=== PATIENT | female | born 1950 | race Caucasian/White ===

== ENCOUNTER → 2023-07-14 13:44 | Outpatient (REF) | payer MEDICARE, OTHER, SELFPAY | LOC: WDC 13:44 | PROVIDERS: ATTENDING PHYSICIAN Internal Medicine | DX: Z12.31 Encounter for screening mammogram for malignant neoplasm of breast (principal) | CPT/HCPCS: 77063; 77067 ==

== ENCOUNTER → 2023-07-19 09:04 | Outpatient (REF) | payer MEDICARE, OTHER, SELFPAY | LOC: RCS 09:04 | PROVIDERS: ATTENDING PHYSICIAN Nurse Practitioner Family | DX: R51.9 Headache, unspecified (principal); R20.0 Anesthesia of skin; R20.2 Paresthesia of skin; R01.1 Cardiac murmur, unspecified; I10 Essential (primary) hypertension; E78.2 Mixed hyperlipidemia; E11.69 Type 2 diabetes mellitus with other specified complication | CPT/HCPCS: 93306 ==

== ENCOUNTER 2023-07-20 17:22 | Inpatient (IN) | payer MEDICARE, OTHER, SELFPAY ==
[2023-07-20] VITALS (9 sets, daily range): BP systolic 130–176; BP diastolic 75–134
--- NOTE | 2023-07-20 13:51 | ED.GENMED ---
History of Present Illness
General
Chief Complaint: Abnormal Lab Value
Time Seen by Provider: 07/20/23 13:51
Travel History
Have you had any contact with someone who has COVID-19?: No
Do you have any symptoms of coronavirus? Fever > 100 degrees, chills, cough, shortness of breath, sore throat, loss of taste or smell, muscle aches, or headache?: No
History of Present Illness
History of Present Illness:
HPI: The patient comes in today by primary care's office after carotid ultrasound today was abnormal. Imaging was obtained today by primary care doctor because she has been having a few months of right-sided paresthesias however no other neurologic
deficits. notes no neurologic abnormality including no language deficits.
EXAM:
GENERAL: Well appearing in no distress
HEENT: Moist oral mucosa
CARDIOVASCULAR: No murmurs, normal heart rate, regular rhythm, No chest wall tenderness
PULMONARY: No respiratory distress, breath sounds are clear and equal
ABDOMEN: Soft with no peritoneal signs, no tenderness
NEUROLOGIC: Excellent strength all extremities, no coordination deficits, GCS 15, NIH stroke scale equals 0, no sensory deficits
PSYCHIATRIC: Appropriate mental status, normal insight and judgement
EXTREMITIES: Nontender, no edema, moves all extremities equally
SKIN: No rash, no lesions
TIME OF INITIAL ENCOUNTER: 1:55 PM
NUMBER AND COMPLEXITY OF PROBLEMS ADDRESSED AT THE ENCOUNTER
� Chronic conditions affecting care: High blood pressure, hyperlipidemia
� Acute Exacerbation and/or Progression of Chronic Illness: This is an acute problem
� Differential Diagnosis includes: Carotid stenosis, CVA
AMOUNT AND/OR COMPLEXITY OF DATA TO BE REVIEWED AND ANALYZED
� I performed an independent evaluation of and my interpretation is:
EKG:
CT: I personally viewed the CT imaging of the brain that she had earlier today and saw no acute abnormality.
X-rays:
Laboratory Studies: CBC unremarkable, chemistries unremarkable
Other:
� Review of other/old records: I reviewed the ultrasound report of the carotids that was done earlier today that showed 70% stenosis and likely near occlusion at the right carotid bulb, there is also left carotid bulb plaque
measuring greater than 70% stenosis
� Clinical information was obtained by an independent historian: I spoke to at bedside
� Prescriptions/Medications Considered but not given:
� Further testing considered but not performed:
RISK OF COMPLICATIONS AND/OR MORBIDITY OR MORTALITY OF PATIENT MANAGEMENT
� Social determinants of health affecting care: Lives at home
� Discussion with other providers: I personally reviewed case with Dr. Nielsen at 2 PM and suggested admission to the hospital with neurology evaluation as well. I spoke to Dr. Knapp at 3:38 PM who recommends patient stay in the
hospital regardless of CTA. Hospitalist for admission at 3:38 PM
� Escalation of care including admission/observation vs risk of discharge considered: Given patient's findings on ultrasound along with paresthesias over the last several weeks, neurology recommends patient stay in the hospital.
A CTA is pending.
Phy Exam
Physical Exam
Physical Exam:
See HPI
Course
Orders/Labs/Results
Orders:
Orders
07/20/23 14:10
CT Head & Neck Angio W/wo IV Urgent
Reason For Exam: b/l carotid stenosis by US; R paresthesias
Basic Metabolic Panel Urgent
Complete Blood Count/With Diff Urgent
07/20/23 15:51
Aspirin 325 mg PO NOW STA
Clopidogrel Bisulfate [Plavix] 600 mg PO NOW STA
NIH Stroke Scale As Directed
NIH Stroke Scale As Directed
Directions: Per protocol
Comment: Please until order to stop
Neurological Checks As Directed
Frequency: Per unit guidelines
07/20/23 15:52
Lorazepam [Ativan] 2 mg IV NOW PRN
07/20/23 17:09
Admit/Transfer Patient As Directed
Co-Sign Provider:
Level of Care: Inpatient admission
Assign to:: Telemetry
Physician / Group: Hospitalist
Diagnosis: Carotid atenosis
Reason for Telemetry: CVA/TIA
Date to Stop Telemetry: 07/23/23
Time to Stop Telemetry: 11:00
Reason for Hospitalization: Carotid stenosis
Expected length of stay greater than two midnights?: Yes
ELOS- Estimated Length of Stay in days: 3
I certify the patient meets the requirements for IP care: Yes
07/20/23 17:11
Code Status As Directed
Resuscitation Status: Full Code
07/20/23 18:00
Atorvastatin [Lipitor] 10 mg PO QPM
07/20/23 19:59
Acetaminophen [Tylenol/Feverall] 650 mg RECTAL Q4HPRN PRN
Acetaminophen [Tylenol] 1,000 mg PO DAILYPRN PRN
Acetaminophen [Tylenol] 650 mg PO Q4HPRN PRN
Lisinopril [Zestril] 10 mg PO DAILY
07/20/23 19:59
Case Management Consult ONCE
Case Management Consult: Discharge Planning
Comment: stroke/tia
DIETARY CONSULT Routine
Reason for Consult: stroke/TIA
Floorperson Urgent
Activity As Directed
Activity Level: Ambulate
NIH Stroke Scale As Directed
Directions: Per protocol
Comment: every shift and with any change in condition or mental status
Neurological Checks As Directed
Frequency: q4h
Additional Instructions:: q4h x 24h upon admission to the floor, then qshift & with any change in condition
and mental status
Patient Education As Directed
Type: Stroke education packet
Comment: provide to patient and family
Pneumatic Compression Sleeves As Directed
Type: Knee high
Swallow Screening CVA/TIA ONLY As Directed
Comment: NPO until swallowing screening completed
If patient FAILS swallow screening:: NPO, Speech Therapy consult, Aspiration Precautions
If patient PASSES swallow screening, diet:: Cholesterol Lowering
Above diet order entered?: Yes- passed screening
Vital Signs As Directed
Frequency: Per unit guidelines
Ot Eval And Treat Routine
Pt Eval And Treat Routine
Treatment: eval gait
Activity Level: Ambulate
Speech Therapy Eval & Treat Routine
DX Deep Vein Thrombosis Video Routine
07/21/23 06:29
Cardiovascular Evaluation IN AM
Glycohemoglobin (HgbA1c) IN AM
07/21/23 08:00
Aspirin Chewable [Low Strength Aspirin] 81 mg PO DAILY
Aspirin Low Dose EC [Aspir Low (Enteric Coated)] 81 mg PO DAILY
Clopidogrel Bisulfate [Plavix] 75 mg PO DAILY
Clopidogrel Bisulfate [Plavix] 75 mg PO DAILY
07/21/23 15:52
MR Brain Without Contrast Routine
Reason For Exam: any left MCA strokes? suspec symptomatic L carotid
Recent pill cam endoscopy?: No
07/23/23 11:00
DC Protocol for Telemetry ONCE
Abnormal Lab Results
07/20/23
14:10
RBC 4.11 L 10^6/uL
(4.20-5.40)
MCH 32.1 H pg
(27.0-31.0)
MPV 13.7 H fL
(7.4-10.4)
Neutrophils % 35.9 L %
(42.2-75.2)
Lymphocytes % 53.8 H %
(20.5-51.1)
Glucose 103 H mg/dl
(70-99)
07/20/23 14:10
07/20/23 14:10
Vital Signs
Initial and Last Documented VS:
Initial Vital Signs
Temp Pulse Resp BP Pulse Ox
98.2 F 65 18 168/134 99
07/20/23 13:35 07/20/23 13:35 07/20/23 13:35 07/20/23 13:35 07/20/23 13:35
Last Documented Vital Signs
Temp Pulse Resp BP Pulse Ox
98.0 F 69 17 132/59 97
07/21/23 23:00 07/21/23 23:00 07/21/23 23:00 07/21/23 23:00 07/21/23 23:00
*Critical Care Note
Total Time (30-74mins, 75-104mins- exclusive of procedures): Not Applicable
ED Attending Note
-
Portions of this chart may have been created with voice recognition software.� Occasional wrong word or��sound alike� substitutions may have occurred due to the inherent limitations of voice recognition software.
Discharge Plan
Departure
Patient Disposition: Admit
Date of Disposition: 07/20/23
Time of Disposition: 15:45
Presentation/result/management discussed w/ accepting MD/DO: Hospitalist
Patient with high blood pressure during this ER visit?: Yes
Discharge Problem:
Carotid stenosis, bilateral
Interventions
Interventions:
*Risk Screen - Suicide Last Done: 07/20/23 13:35
*General Assessment Last Done: 07/20/23 13:35
*Neglect/Abuse Screening Last Done: 07/20/23 13:35
*ED COVID-19 Vaccine History Last Done: 07/20/23 13:35
*Nursing Disposition Last Done: 07/20/23 20:02
Discharge Date and Time
Discharge Date/Time: 07/20/23 20:03
--- NOTE | 2023-07-20 14:25 | CON.NEURO4 ---
Consultation - Neurology 4
-
CONSULTING PHYSICIAN: Eboni Knapp
REFERRING PHYSICIAN: ER
DICTATED BY: Eboni Knapp
DATE/TIME OF REQUEST: 07/20/23
DATE/TIME OF CONSULTATION: 07/20/23
Reason for Consultation: Right sided paresthesias
History of Present Illness:
Patient is a 73-year-old woman with a past ministry of hypertension, [id number] diabetes mellitus who was referred to the ER after finding of significant findings on outpatient carotid ultrasound. Patient had relayed findings of some
intermittent right face/lip hand and right leg paresthesia over the past couple of weeks which led to diagnostic tests of CT head noncontrast as well as carotid ultrasound. Carotid ultrasound done late this morning demonstrated near occlusion on
the right internal carotid artery along with high-grade greater than 70% stenosis on the left internal carotid artery.
Patient reports that around 4 to 6 weeks ago she began to have intermittent right face/lip, right hand and right leg paresthesias. They were painless and lasted a very brief time perhaps less than a minute and then spontaneously resolved. She
thinks she may have had a very minor episode today but not entirely sure, otherwise the last episode seems to been around 7 to 10 days ago. The episodes seem to occur intermittently sometimes happening 2 or 3 days out of the week and then going
several days without happening.
She did not have any left eye blindness or vision change, slurred speech or speech difficulty or weakness of the right hand face or leg during the episodes.
Does not take any antiplatelet at baseline no history of TIA or stroke before. No recent head or neck trauma or radiation treatments to the neck.
Past Medical History: Hypertension, hyperlipidemia, type 2 diabetes mellitus not on insulin
Surgical History: Appendectomy, Bartholin cyst excision
Family History: Mother with lung cancer, father had colon cancer and hypertension, no history of early stroke or CAD
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
Allergies: No known drug allergies
Review of Symptoms:
Patient denies any fever, headache, chest pain, shortness of breath, GI or symptoms.
Physical Exam:
Middle aged woman no overt distress, head normocephalic no trauma, no neck masses, oropharynx clear, heart rate regular, systolic murmur heard, breathing unlabored lungs clear to auscultation bilaterally, abdomen soft non tender no lower extremity
edema
Neurologic Examination:
The patient is awake, alert and oriented x 3. Shee is able to follow commands and answer questions appropriately. There is no aphasia or dysarthria. On cranial nerve assessment, pupils are 3 mm bilateral, round and reactive to light and
accommodation. Visual clark are full. Extraocular movements are intact. Facial sensations are intact and bilaterally symmetrical, there is no facial asymmetry. Hearing is intact bilaterally to normal conversation volume. Tongue palate and uvula
are midline. Sternocleidomastoid strengths are full bilaterally. Motor strengths are 5/5 bilateral upper and lower extremities on medical research Russell scale. There is no drift or involuntary movement noted. Deep tendon reflexes are 2+ bilateral
upper and lower extremities and Babinski is absent bilaterally. Intact to light touch, vibration in upper and lower extremities in symmetric fashion. There was no extinction noted on double simultaneous stimulation. Coordination is intact by finger
to nose bilaterally.
Neuro Imaging:
CT head non contrast no acute abnormality, no infarct, hemorrhage, masses or edema
CTA head and neck pending
Carotid ultrasound
IMPRESSION:
1. Calcified plaque within the right carotid bulb, measurements suggestive of high-grade greater than 70% stenosis, and likely near occlusion as per modified Society of Radiologists in Ultrasound consensus criteria (IAC carotid criteria white paper,
2020). Peak systolic velocity 615 cm/s, and internal to common carotid ratio 9.69.
2. Calcified left carotid bulb plaque, measurements suggestive of greater than 70% stenosis, although degree of stenosis is less but not seen within the right carotid bulb. Peak systolic velocity 298 cm/s, internal to common carotid ratio 5.41.
Impressions
1. High degree of suspicion for symptomatic left carotid stenosis causing sensory TIA or minor stroke with face/arm/leg paresthesia. History and exam not supporting these symptoms as coming from cervical spine with no weakness, muscle atrophy,
or hyperreflexia indicative of myelopathy, and very rare for cervical spine issues to give such symptoms.
2. Carotid ultrasound supporting > 70% stenosis on left ICA and probable occlusion of right ICA
3.
4.
Recommendations:
1. Follow up CTA of the head and neck
2. Give clopidogrel 600 mg and aspirin 325 once now. Start DAPT clopidogrel 75 mg and Aspirin 81 mg tomorrow
3. Goal normotension
4. Check lipid panel and HbA1c
5. Continue Atorvastatin 10 mg daily
6. Neurologic checks and NIH scales
7. Would check MRI brain without contrast, Lorazepam beforehand with some claustrophobia
8. Vascular surgery note reviewed appreciated input
9. Monitor on cardiac telemetry, has a recent TTE so don't feel this needs repeating
Will follow
Discussed patient care with: Patient and her , ED
[2023-07-20 14:36] LABS: % Basophils 0.8 % (0-2); % Eosinophils 2.4 % (0-6); % Immature Granulocytes 0.5 % (0-0.5); % Lymphocytes 53.8 % (20.5-51.1); % Monocytes 6.6 % (1.7-9.3); % Neutrophils 35.9 % (42.2-75.2); Absolute Basophils 0.1 10^3/uL (0-0.2); Absolute Eosinophils 0.2 10^3/uL (0-0.7); Absolute Lymphocytes 3.4 10^3/uL (1.2-3.4); Absolute Monocytes 0.4 10^3/uL (0.1-0.6); Absolute Neutrophils 2.3 10^3/uL (1.4-6.5); Hematocrit 38.5 % (37.0-47.0); Hemoglobin 13.2 g/dL (12.0-16.0); Mean Corp Hgb Conc. 34.3 g/dL (33.0-37.0); Mean Corpuscular Hgb 32.1 pg (27.0-31.0); Mean Corpuscular Volume 93.7 fL (81.0-99.0); Mean Platelet Volume 13.7 fL (7.4-10.4); Nucleated Red Blood Cells % 0 %; Platelet Count 167 10^3/uL (130-400); Red Blood Cell Count 4.11 10^6/uL (4.20-5.40); Red Cell Dist. Width 13.2 % (11.5-14.5); White Blood Cell Count 6.3 10^3/uL (4.8-10.8)
--- NOTE | 2023-07-20 14:41 | W.PN.UPDATE ---
Update Note
Progress Note Update
Seen and examined with INTERNET SALES MANAGER. Full consultation to follow. Briefly 73-year-old female I was asked to see in the emergency room due to carotid stenosis. Patient and her note that she had had elevated blood pressure reading at their living
facility [facility]. This prompted evaluation her primary care office. The hypertension as well as her relaying to her primary care provider symptoms on and off for about 2 months of right sided facial/perioral numbness as well as right upper and
lower extremity numbness. These paresthesias occurred intermittently maybe every couple weeks. Most recently she thinks she had 1 today. The each last about 5 minutes. No amaurosis. No weakness. No portrait photographer difficulty. No speech dysarthria.
Carotid duplex done as an outpatient demonstrated significant stenoses and therefore she was referred to the emergency room.
Cardiovascular risk factors include hypertension, hyperlipidemia, tobacco use (smoked from ages 18 to 32 to 3 packs a day). Denies any history of CVAs/MS/coronary disease.
On exam/she is awake and alert. Head is normocephalic and atraumatic. Eyes are anicteric. Neck is soft without jugular venous distention. Breathing is unlabored. 2+ upper extremity radial pulses palpable bilaterally. Abdomen is soft,
nondistended, nontender. Lower extremity with 2+ femoral and pedal pulses palpable bilaterally. Feet are warm and pink and well-perfused, no rubor, no ulcerations. No gross focal neurologic deficits.
Carotid duplex reviewed. Severe right carotid stenosis with peak systolic velocity in the 600 cm/s range. Appears near occlusive. On the left side velocity profile also consistent with greater than 70% stenosis.
Plan/ Severe bilateral carotid stenoses. She may be symptomatic (paresthesias intermittently right side of the body). This would suggest left carotid symptomatic stenosis possibly. However, I think based on all this would favor neurologic
evaluation. In addition I have recommended CT angiogram of the head and neck to confirm/better ascertain the degree of stenosis. Following neurology evaluation we can decide whether she is symptomatic or asymptomatic. If symptomatic, and CAT scan
confirms high degree of stenosis, then would favor revascularization on this admission (would plan admission, medical optimization/cardiology evaluation, and possible OR Monday). If asymptomatic, and CT scan demonstrates chronic plaque, then could
workup further as outpatient. If asymptomatic and CT scan demonstrates near occlusive or string-like stenoses, then would consider revascularization on this admission as above. Will await neurology evaluation and CT scan imaging. Discussed all
this with the patient and her . Discussed with the ER physician as well.`
--- NOTE | 2023-07-20 14:43 | CON.VAS ---
Consultation
Consultation Request
Date/Time Consultation Performed: 07/20/23 1845
Requesting Provider: Andres Morton MD
Performing Provider: Radha Vuong NP-C for Tomas Nielsen MD
Reason for Consultation: Bilateral carotid stenosis
Medical History
-
Chief Complaint: Right sided paresthesia intermittent
History of Present Illness:
This is a right-handed 73-year-old female with significant past medical history of hypertension, hyperlipidemia, and diabetes who presents to the ED from the urgency of the RECORDS OFFICER at her PCP office for outpatient ultrasound resulting with bilateral
severe carotid stenosis and accompanying right-sided paresthesia over the past 2 months. Patient and her note that she had an elevated blood pressure reading at their living facility [facility], her high blood pressure results and recent
intermittent episodes of paresthesia prompted her to see her PCP. She notes over the past roughly 2 months she has been experiencing roughly 1/week episodes of paresthesia located in her right lip, right hand digits, and anterior area of right
lower extremity. Each episode lasts less than 5 minutes and then she has a complete return to baseline neurological status. Most recently she thinks she had one today. She denies amaurosis, unilateral weakness, generalized weakness, dysarthria,
and aphasia. Carotid duplex done as an outpatient demonstrated significant stenoses and therefore she was referred to the emergency room.
Cardiovascular risk factors include hypertension, hyperlipidemia, tobacco use (smoked from ages 18 to 32 to 3 packs a day). She denies personal history of MS, stroke, recent trauma, or requirement of vascular surgical intervention. She denies
history of similar symptomatology in the past.
Past Medical History
Past Medical History: HTN, NIDDM (Recent hemoglobin A1c 6.4 currently managed with diet) and Other (Hyperlipidemia)
Past Surgical History: Appendectomy
Social History
Tobacco: Former Smoker (Approximately 3 packs/day for 20 years)
Alcohol: Occasional
Drug: None
Personal:
Living: With Family
Family History
Family History: Other (Denies familial history of stroke)
Allergies / Home Medications
Allergy/AdvReac Type Severity Reaction Status Date / Time
No Known Allergies Allergy Unverified 07/20/23 13:37
�Medication �Instructions �Recorded �Confirmed �Type
Vitamin Powder 1 tbsp PO DAILY 07/20/23 07/20/23 History
acetaminophen 500 mg tablet 1,000 mg PO DAILYPRN PRN mild pain 07/20/23 07/20/23 History
(Tylenol Extra Strength)
ascorbic acid 1,000 1 ea PO DAILY 07/20/23 07/20/23 History
ob-usywefxfgoyr-agrnickr powder
effervescent pack (Emergen-C)
atorvastatin 10 mg tablet 10 mg PO QPM 07/20/23 07/20/23 History
lisinopril 10 mg tablet 10 mg PO DAILY 07/20/23 07/20/23 History
naproxen sodium 220 mg tablet 440 mg PO HSPRN PRN mild pain 07/20/23 07/20/23 History
(Aleve)
Review of Systems
-
History Source: Patient
Constitutional: Reports No Symptoms
EENT: Reports Other (Mild headaches)
Respiratory: Reports No Symptoms
Cardiac: Reports No Symptoms
Vascular: Denies Leg Pain / Claudication, Numbness or Tingling
Abdomen/GI: Reports No Symptoms
: Reports No Symptoms
Musculoskeletal: Reports No Symptoms
Skin: Reports No Symptoms
Neurological: Reports Numbness (Intermittent nonsustained paresthesia of right lip, right hand digits, and area of right lower extremity)
Endocrine: Reports No Symptoms
Physical Exam
Vital Signs
Temp Pulse Resp BP Pulse Ox
98.2 F 65 20 131/89 99
07/20/23 13:35 07/20/23 13:35 07/20/23 14:17 07/20/23 14:17 07/20/23 13:35
Lab Results
07/20/23 14:10
Physical Exam
General: No Apparent Distress and Comfortable
HEENT: Normocephalic, Anicteric and Atraumatic
Respiratory: Non Labored Respirations
Cardiac: Regular Rhythm; Negative JVD
GI: Soft, Non Tender and Non Distended
Musculoskeletal: No Edema
Skin: Warm and Dry
Neuro: AO x 3, No Motor Deficits and Nonfocal/Grossly Intact
Psych: Calm
Pulses: Bilateral Femoral: +2, Bilateral Dorsalis Pedis: +2 and Bilateral Posterior Tibial: +2
Assessment / Plan
-
Assessment: 73-year-old female with bilateral carotid stenosis per ultrasound with accompanying intermittent right-sided paresthesia. She may be symptomatic (paresthesias intermittently right side of the body)
Plan:
Neurology consultation, would appreciate their input on if this is asymptomatic carotid stenosis
CT angiogram of the head and neck to confirm/better ascertain the degree of stenosis
If symptomatic, and CAT scan confirms high degree of stenosis, then would favor revascularization on this admission (would plan admission, medical optimization/cardiology evaluation, and possible OR Monday). If asymptomatic, and CT scan
demonstrates chronic plaque, then could workup further as outpatient. If asymptomatic and CT scan demonstrates near occlusive or string-like stenoses, then would consider revascularization on this admission as above.
Surgical plan pending CT scan imaging and neurology evaluation
I performed this shared service with the attending. I evaluated the patient [id number] and have entered clinical documentation as shown in the encounter note. I performed the following component(s): history and physical exam. Note that medical
decision making is not final until attested by vascular attending
[2023-07-20 14:49] LABS: Blood Urea Nitrogen 15 mg/dl (7-17); Calcium 9.8 mg/dl (8.4-10.2); Carbon Dioxide 30 mmol/L (22-30); Chloride 105 mmol/L (98-107); Glucose 103 mg/dl (70-99); Sodium 139 mmol/L (135-145); eGFR > 60.00
[2023-07-20] MEDS: ASPIRIN 325 MG PO (16:41)
[2023-07-20] MEDS: PLAVIX 600 MG PO (16:42)
--- NOTE | 2023-07-20 16:53 | HPS.HSE ---
Family Physician
-
Family Physician: Genet Merida
Chief Complaint
-
Abmormal US
History of Present Illness
73-year-old woman with a past history of
hypertension,
hzj-brlixnv-gkfqkolqa diabetes mellitus
Comes in to ER after an outpatient carotid ultrasound showed near occlusion on the right internal carotid artery along with high-grade greater than 70% stenosis on the left internal carotid artery. She reports intermittent right face/lip hand and
right leg paresthesia over the past few weeks. When questioned further, she adds that 4 to 6 weeks ago she began to have intermittent right face/lip, right hand and right leg paresthesias: painless, lasting less than a minute and then spontaneously
resolving. She denies left eye blindness, vision change, slurred speech or speech difficulty or weakness of the right hand face or leg during the episodes. She does not take any antiplatelet meds and has no history of TIA or stroke, mo recent head
or neck trauma or radiation treatments to the neck. At the time of my interview she had no symptoms and felt well.
Medical History
Past Medical History
Past Medical History: Reports Other
Additional Past Medical History:
Essential Hypertension,
hyperlipidemia,
type 2 diabetes mellitus not on insulin
Appendectomy,
Bartholin cyst excision
Diffuse cystic mastopathy of both breasts
Past Surgical History: Reports Other
Additional Past Surgical History:
See above
Social History
Tobacco: Non-smoker
Alcohol: Daily
Drug: None
Personal:
Living: With Family
Family History
Family History: Not pertinent
Allergies / Home Medications
Allergies reflects when Allergies were last updated in [facility].
Home Medications with original date entered in [facility]
Allergy/Medication List:
Allergies
Allergy/AdvReac Type Severity Reaction Status Date / Time
No Known Allergies Allergy Unverified 07/20/23 13:37
Home Medications
Vitamin Powder 1 tbsp PO DAILY Supplement 07/20/23
acetaminophen 500 mg tablet (Tylenol Extra Strength) 1,000 mg PO DAILYPRN PRN mild pain 07/20/23
ascorbic acid 1,000 ks-jwvftqtclkpx-hrxvacxp powder effervescent pack (Emergen-C) 1 ea PO DAILY Supplement 07/20/23
atorvastatin 10 mg tablet 10 mg PO QPM High Cholesterol 07/20/23
lisinopril 10 mg tablet 10 mg PO DAILY High Cholesterol 07/20/23
naproxen sodium 220 mg tablet (Aleve) 440 mg PO HSPRN PRN mild pain 07/20/23
Review of Systems
-
History Source: Patient
A 12 point ROS was completed and negative except as noted: Yes
Physical Exam
Vital Signs
Vital Signs
Temp Pulse Resp BP Pulse Ox
98.2 F 71 15 140/121 95
07/20/23 13:35 07/20/23 16:30 07/20/23 16:15 07/20/23 16:21 07/20/23 16:30
Physical Exam
General: Well Developed, Well Nourished, No Apparent Distress, Comfortable and Conversant
HEENT: NormoCephalic, Moist mucous membranes, Atraumatic, No Ptosis, Nose Appears Normal and Ears Appear Normal
Respiratory: Clear
Cardiac: S1/S2 and Regular Rhythm
GI: Soft, Non Tender and Non Distended
Musculoskeletal: No Clubbing, No Cyanosis and No Edema
Skin: Warm and Dry; No Rash or Jaundice
Neuro: Awake, Alert, Oriented, AO x 3 and Nonfocal/grossly intact
Psych: Calm
Laboratory Results
-
07/20/23 14:10
07/20/23 14:10
Data Reviewed
-
Lab Data: Labs Reviewed by me
Impression/Plan
-
IMPRESSION:
73 woman with carotid stenosis. Patient has been seen by vascular surgery and neurology.
PLAN:
1. Carotid stenosis. Please see notes from vascular surgery and neuro. In summary:
VS:
Neurology consultation
CT angiogram of the head and neck to confirm/better ascertain the degree of stenosis
If symptomatic, and CAT scan confirms high degree of stenosis, then would favor revascularization on this admission
plan admission: medical optimization
cardiology evaluation
possible OR Monday
If asymptomatic, and CT scan demonstrates chronic plaque, then could workup further as outpatient.
If asymptomatic and CT scan demonstrates near occlusive or string-like stenoses, then would consider revascularization on this admission as above.
Surgical plan pending CT scan imaging and neurology evaluation
Neuro:
Follow up CTA of the head and neck
clopidogrel 600 mg and aspirin 325 once now.
Start DAPT clopidogrel 75 mg and Aspirin 81 mg tomorrow
Goal normotension
Check lipid panel and HbA1c
Continue Atorvastatin 10 mg daily
Neurologic checks and NIH scales
check MRI brain without contrast, Lorazepam beforehand with some claustrophobia
Monitor on cardiac telemetry,
No need to repeat TTE
2. Essential HTN - chronic.
Lisinopril 10
Re-melani in am and add other agents if needed
VCD for DVTp
Full code
--- NOTE | 2023-07-20 17:20 | W.PN.UPDATE ---
Update Note
Progress Note Update
CT angiogram of the head and neck reviewed. (Images reviewed by me). Severe bilateral bifurcation/proximal internal carotid artery stenosis with heavy concentric calcified plaque and mixed plaque more centrally. Appears to result in severe
stenoses bilaterally. Reviewed neurology note. Agree with Dr. Knapp that this likely represents symptomatic critical left carotid stenosis, asymptomatic high-grade right carotid stenosis. Discussed these findings with the patient and her
. Discussed my recommendations for carotid revascularization. Discussed with her alternatives of revascularization including carotid endarterectomy and carotid stenting. Recommend left carotid endarterectomy. Procedure discussed at
length. Discussed risks including but not limited to bleeding, infection, cardiac complications/LA, cranial nerve injury, stroke (in symptomatic setting approximately 2%). She understands all and wishes to proceed with LEFT carotid endarterectomy.
Therefore, we will plan left carotid endarterectomy Monday,07/24/2023. In the meanwhile would recommend cardiology consultation tomorrow. Patient has already completed outpatient echocardiogram yesterday. Will defer to cardiology if further
preoperative imaging is required, however she is symptomatic to the carotid artery and therefore would proceed regardless on Monday unless felt by cardiology that she would strongly benefit from further preoperative cardiac testing. However, she
certainly would benefit from restratification, and likely establishing longer-term follow-up with cardiology team.
In addition, I agree with Dr. Knapp for MRI evaluation of the brain.
Note I did discuss my recommendation likely for staged right carotid revascularization. She has severe stenosis by ultrasound and CT scan on the right side. However, she is asymptomatic to that side currently.
[2023-07-20] MEDS: LIPITOR 10 MG PO (20:55)
[2023-07-20] MEDS: ZESTRIL PO (21:09)
[2023-07-21] VITALS (7 sets, daily range): BP systolic 132–212; BP diastolic 59–96
--- NOTE | 2023-07-21 00:14 | PTCARENOTE ---
Pt admitted from ED, arrived to 3W at 1999. Pt AAOx3, no c/o pain. Pt ambulating without issues. Pt afebrile, VSS. L AC IV C/D/I. Lungs clear, pt on room air. No N/V or stools. Pt continent of bowel and bladder. Diet order placed upon
arrival, pt with good PO intake. Skin intact. Pt placed on telemetry box #1. [facility] order QShift and Neuro checks continue q4 hours. Awaiting further plan. Call soto within reach and bed in lowest position.
[2023-07-21] MEDS: APRESOLINE 5 MG IV ×2 (04:20→21:53)
[2023-07-21 07:22] LABS: HDL Cholesterol 51 mg/dl; LDL Cholesterol, Calculated 88 mg/dl; Total Cholesterol 175 mg/dl (50-199); Triglyceride 184 mg/dl (10-149); Very Low Density Lipoprotein 36 mg/dl (0-30)
[2023-07-21] MEDS: ZESTRIL 10 MG PO (07:45)
[2023-07-21] MEDS: LOW STRENGTH ASPIRIN 81 MG PO (07:46)
[2023-07-21] MEDS: ASPIR LOW (ENTERIC COATED) 81 MG PO (07:46)
[2023-07-21] MEDS: PLAVIX 75 MG PO (07:46)
--- NOTE | 2023-07-21 08:47 | PTOTSP ---
The patient is independent with ambulation and elevations, demonstrating no signs of weakness or instability. The patient is planned for left CEA on Monday - please reconsult postop if there are concerns regarding her mobility. PT will sign off at
this time given there are no therapy needs.
[2023-07-21 08:53] LABS: Glycohemoglobin (HgbA1c) 6.4 % (4.0-5.6)
--- NOTE | 2023-07-21 10:20 | CON.CAR ---
Addendum entered and electronically signed by Beto Reid MD 07/21/23 11:45:
I saw and examined the patient.
The NURSING EXECUTIVE's note was reviewed and I agree with the note.
Comment: 73 yo female with HTN, diet controlled DM, and HLD, who presented to the ER for abnormal outpatient carotid u/s. Carotid u/s showed near occlusion of the right internal carotid artery and high-grade > 70% stenosis of the left internal
carotid artery. She is very active and easily able to do greater than 4 METS without any cardiovascular symptoms. I discussed with her that she needs no further testing or medication prior to surgery.
-Low to intermediate risk candidate for surgery, however, given no cardiovascular symptoms needs no further testing or medication prior to surgery.
-We will sign off; please call back with questions or concerns.
Original Note:
Consultation
Consultation Request
Date/Time Consultation Requested: 07/21/23 9a
Date/Time Consultation Performed: 07/21/23 10a
Requesting Provider: JESSICA Dee
Performing Provider: JESSICA Mauro for Dr. Reid
Reason for Consultation: pre-op risk assessment
Medical History
-
Chief Complaint: right face/hand parathesias, carotid artery stenosis
History of Present Illness:
Mrs. Jasso is a 73 yo female with HTN, diet controlled DM, and HLD, who presented to the ER for abnormal outpatient carotid u/s. Carotid u/s showed near occlusion of the right internal carotid artery and high-grade > 70% stenosis of the left
internal carotid artery. She admits to having right face/lip, hand an d leg parathesias for several weeks. She is admitted with neurology and vascular surgery following. We are consulted for pre-op risk assessment prior to planned left CEA for
07/24/[address] Nielsen. She denies any cardiac symptoms. Echo 07/19/23 showed EF 60%, mild cLVH, and mild-mod MR.
Past Medical History
Past Medical History: Other (as above)
Past Surgical History: Appendectomy
Social History
Tobacco: Former Smoker
Alcohol: Occasional
Personal:
Living: With Family
Employment: Retired
Family History
Family History: Reviewed & Not Pertinent
Allergies / Home Medications
Allergy/AdvReac Type Severity Reaction Status Date / Time
No Known Allergies Allergy Unverified 07/20/23 13:37
�Medication �Instructions �Recorded �Confirmed �Type
Vitamin Powder 1 tbsp PO DAILY Supplement 07/20/23 07/20/23 History
acetaminophen 500 mg tablet 1,000 mg PO DAILYPRN PRN mild pain 07/20/23 07/20/23 History
(Tylenol Extra Strength)
ascorbic acid 1,000 1 ea PO DAILY Supplement 07/20/23 07/20/23 History
kx-hwhjbcrylhzl-qivuqldh powder
effervescent pack (Emergen-C)
atorvastatin 10 mg tablet 10 mg PO QPM High Cholesterol 07/20/23 07/20/23 History
lisinopril 10 mg tablet 10 mg PO DAILY High Cholesterol 07/20/23 07/20/23 History
naproxen sodium 220 mg tablet 440 mg PO HSPRN PRN mild pain 07/20/23 07/20/23 History
(Aleve)
Review of Systems
-
History Source: Patient
All other systems: Negative unless noted
Physical Exam
Vital Signs
Temp Pulse Resp BP Pulse Ox
97.8 F 57 16 157/71 99
07/21/23 07:07 07/21/23 07:45 07/21/23 07:07 07/21/23 07:45 07/21/23 07:07
Lab Results
07/20/23 14:10
07/20/23 14:10
Physical Exam
General: Well Developed, Well Nourished and No Apparent Distress
HEENT: Normocephalic, Anicteric and Moist Mucous Membranes
Respiratory: Clear
Cardiac: S1/S2 and Regular Rhythm
Breast: Deferred by me
GI: Soft, Non Tender, Non Distended and Normal Bowel Sounds
Rectal: Deferred by Provider
Musculoskeletal: No Clubbing, No Cyanosis and No Edema
Skin: Warm and Dry
Neuro: AO x 3
Psych: Calm
Impression / Plan
-
Pre-op risk assessment - prior to left CEA 07/24/[address] Nielsen.
- denies any cardiac symptoms.
- she is able to perform > 4 METS without any cardiac symptoms.
- echo 07/19/23 with normal LVEF, no RWMA, mild cLVH and mild-mod MR.
- no further cardiac testing recommended prior to L CEA.
- EKG ordered.
Carotid stenosis - severe b/l.
- symptomatic critical left carotid stenosis, asymptomatic high-grade right carotid stenosis.
- vascular surgery following and plans for left CEA on 07/24/23.
- ASA, Lipitor, Plavix
- neurology following also.
HTN - well controlled on Lisinopril, continue.
HLD - continue Lipitor.
- LDL 88.
DM - diet controlled.
- hgba1c 6.4%.
Data Reviewed
-
CT Scan: Report Reviewed by me (head: WNL) and Other (CTA: High-grade stenosis of the bilateral carotid bulbs secondary to severe atherosclerosis. Greater than 90% luminal diameter reduction to near occlusion of the right carotid bulb. Greater than
85% luminal diameter reduction of the left carotid bulb.)
Ultrasound: Report Reviewed by me (carotid u/s: occlusion of the right internal carotid artery and high-grade > 70% stenosis of the left internal carotid artery)
Labs: Labs Reviewed by me
Old Records: Reviewed
--- NOTE | 2023-07-21 11:23 | W.PN.NEURO.1 ---
Today's Communication / Plan
-
-Goal normotension
-NIH and neurologic checks
-Continue DAPT therapy, aspirin/plavix, plan for 21 days of plavix and then stop
-Increase Atorvastatin a small amount fo 20 mg daily, LDL goal less than 70 with TIA and carotid stenosis
-Planning for CEA on Monday
Neuro Assessment/Plan
Assessment
Symptomatic left carotid stenosis producing several episodes of TIA with sensory symptoms of right face/lip, arm and leg, several episodes first starting around 4 weeks ago.
High grade stenosis around 80-90% of the left carotid artery.
Asymptomatic high grade stenosis and near occlusion of right carotid artery.
Risk factors of previous smoking, hypertension, prediabetes
Subjective/Objective
Subjective Data
Date of Service: July 21, 2023
No acute events, no recurrence of right sided paresthesia, no headache, discussed medications, surgery, stroke prevention
Objective Data
Vital Signs
Temp Pulse Resp BP Pulse Ox
97.9 F 64 16 167/83 96
07/21/23 10:59 07/21/23 10:59 07/21/23 10:59 07/21/23 10:59 07/21/23 10:59
Lab Results
07/20/23 14:10
07/20/23 14:10
Sodium 139 mmol/L (135-145) 07/20/23 14:10
Potassium mmol/L (3.5-5.1) 07/20/23 14:10
BUN 15 mg/dl (7-17) 07/20/23 14:10
Glucose 103 mg/dl (70-99) H 07/20/23 14:10
Calcium 9.8 mg/dl (8.4-10.2) 07/20/23 14:10
LDL Cholesterol, Calc 88 mg/dl 07/21/23 06:29
Patient Allergies
No Known Allergies Allergy (Unverified 07/20/23 13:37)
LDL Level: >70, statin ordered
Review of Systems
-
History Source: Patient
All other systems: Reviewed and negative
Constitutional: No Symptoms
EENT: No Symptoms Reported
Respiratory: No Symptoms
Cardiac: No Symptoms
Abdomen/GI: No Symptoms
Genitourinary: No Symptoms
Musculoskeletal: No Symptoms
Skin: No Symptoms
Neuro: Numbness
Endocrine: No Symptoms
Hematologic / Lymphatic: No Symptoms
Allergy / Immunology: No Symptoms
Physical Exam
-
General: No Apparent Distress
Eyes: No Ptosis
HEENT: Normocephalic
Neck: No Bruits Bilaterally
Respiratory: Clear to Auscultation
Cardiac: Regular Rhythm
GI: Normal Bowel Sounds
Skin: Unremarkable
Extremities: No Clubbing
Psych: Unremarkable
Extended Neurological Exam
Mood & Affect: Mood Unremarkable and Affect Unremarkable
Attention Span & Concentration: Awake, Alert and Interactive
Memory: Unremarkable
Tremor: Hand Tremor Absent
Involuntary Movement: None
Speech: Quality Unremarkable and Quantity Unremarkable; Negative Expressive Aphasia, Receptive Aphasia or Dysarthric
Cranial Nerve II: Left Eye: Pupillary Reactivity Unremarkable and Pupillary Size Unremarkable
Cranial Nerve II: Right Eye: Pupillary Reactivity Unremarkable and Pupillary Size Unremarkable
Cranial Nerves III, IV, : Extraocular Movement: Extraocular Movement Full in all Directions
Cranial Nerve VII: Facial Symmetry: Normal Facial Symmetry
Cranial Nerve XII: Tongue Protusion: Midline
Muscle Strength, Overall: Full Throughout
Muscle Bulk & Tone: Bulk Unremarkable and Tone Unremarkable
Pronator Drift: No Drift in Upper Extremities
Deep Tendon Reflexes: Trace Throughout
Touch Sensation: Unremarkable
Coordination: Kcaoru-lrwz-ztvfeo Testing Unremarkable
Data Reviewed
-
CT-A: Report Reviewed and Image Reviewed
CT Head: Report Reviewed and Image Reviewed
MRI Head: Ordered and Pending
Echocardiogram: Report Reviewed
[2023-07-21] MEDS: ATIVAN 2 MG IV (11:31)
[2023-07-21] MEDS: NSS (PRESERVATIVE FREE) 1 ML IV (11:33)
--- NOTE | 2023-07-21 13:24 | W.PN.HOSP.TC ---
Today's Communication/Plan
-
for left CEA Monday
Assessment / Plan
Assessment / Plan
pt is a 73 year old female
Symptomatic left Carotid stenosis--apprec neuro--MRI reveals no acute intracranial pathology--US/CTA with high grade stenosis >90% of right carotid bulb, >85% left carotid bulb--for left CEA on Monday--for now cont asa/plavix x 21 days--cont
lipitor--PT/OT
Essential HTN - chronic-- cont Lisinopril
VCD for DVTp
Code status --Full code
Anticipated Discharge: > 48 hours
Subjective/Interval History
-
Date of Service: July 21, 2023
pt returned from MRI
Objective Data
-
Vital Signs:
max temp for 24 hours
07/20/23
19:30
Temp 98.5 F
Vital Signs
Temp Pulse Resp BP Pulse Ox
97.9 F 64 16 167/83 96
07/21/23 10:59 07/21/23 10:59 07/21/23 10:59 07/21/23 10:59 07/21/23 10:59
Review of Systems
-
All other systems: Reviewed and negative
Physical Exam
-
General: Well Developed, Well Nourished and No Apparent Distress
HEENT: Normocephalic, Atraumatic and Other (bilateral carotid bruits); Negative Oxygen
Respiratory: Clear to Auscultation, Wheezes and Rales
Cardiac: Regular Rhythm and S1/S2; Negative Murmur
GI: Soft, Nontender, Nondistended and Normal Bowel Sounds
Musculoskeletal: No Clubbing, No Cyanosis and No Edema
Skin: Warm
Neuro: Awake
[2023-07-21] MEDS: LIPITOR 20 MG PO (17:03)
[2023-07-21] MEDS: FLUSH (NSS) 1 FLUSH IV (21:54)
[2023-07-22] VITALS (7 sets, daily range): BP systolic 124–169; BP diastolic 63–93
--- NOTE | 2023-07-22 08:14 | W.PN.NEURO.1 ---
Today's Communication / Plan
-
-Continue DAPT, plavix will be for 21 days total then aspirin alone
-20 mg Atorvastatin increased for goal LDL less than 70
-Goal normotension
-Cardiac telemetry
-Discussed CEA planned for Monday
Will follow up Monday, call with questions and concerns
Neuro Assessment/Plan
Assessment
Symptomatic left carotid stenosis producing several episodes of TIA with sensory symptoms of right face/lip, arm and leg, several episodes first starting around 4 weeks ago.
High grade stenosis around 80-90% of the left carotid artery.
Asymptomatic high grade stenosis and near occlusion of right carotid artery.
MRI brain negative for acute infarct, mild/moderate ischemic small vessel disease on white matter
Empty sella seen on brain MRI is asymptomatic
Risk factors of previous smoking, hypertension, prediabetes
Subjective/Objective
Subjective Data
Date of Service: July 22, 2023
No acute events, discussed the MRI brain, no recurrences of sensory TIA, discussed surgery
Objective Data
Vital Signs
Temp Pulse Resp BP Pulse Ox
98.8 F 62 16 168/78 96
07/22/23 07:50 07/22/23 07:50 07/22/23 07:50 07/22/23 07:50 07/22/23 07:50
Lab Results
07/20/23 14:10
07/20/23 14:10
Sodium 139 mmol/L (135-145) 07/20/23 14:10
Potassium mmol/L (3.5-5.1) 07/20/23 14:10
BUN 15 mg/dl (7-17) 07/20/23 14:10
Glucose 103 mg/dl (70-99) H 07/20/23 14:10
Calcium 9.8 mg/dl (8.4-10.2) 07/20/23 14:10
LDL Cholesterol, Calc 88 mg/dl 07/21/23 06:29
Patient Allergies
No Known Allergies Allergy (Unverified 07/20/23 13:37)
LDL Level: >70, statin ordered
Review of Systems
-
History Source: Patient
All other systems: Reviewed and negative
Constitutional: No Symptoms
EENT: No Symptoms Reported
Respiratory: No Symptoms
Cardiac: No Symptoms
Abdomen/GI: No Symptoms
Genitourinary: No Symptoms
Musculoskeletal: No Symptoms
Skin: No Symptoms
Neuro: Numbness; Negative Headache or Speech Problem
Endocrine: No Symptoms
Hematologic / Lymphatic: No Symptoms
Allergy / Immunology: No Symptoms
Physical Exam
-
General: Comfortable
Eyes: No Ptosis
HEENT: Normocephalic
Neck: No Bruits Bilaterally
Respiratory: Clear to Auscultation
Cardiac: Regular Rhythm
GI: Normal Bowel Sounds
Skin: Unremarkable
Extremities: No Clubbing
Psych: Unremarkable
Extended Neurological Exam
Mood & Affect: Mood Unremarkable and Affect Unremarkable
Attention Span & Concentration: Awake, Alert and Interactive
Memory: Unremarkable
Tremor: Hand Tremor Absent
Involuntary Movement: None
Speech: Quality Unremarkable and Quantity Unremarkable; Negative Expressive Aphasia or Dysarthric
Cranial Nerve II: Left Eye: Pupillary Reactivity Unremarkable, Pupillary Size Unremarkable and Visual Vo Grossly Intact
Cranial Nerve II: Right Eye: Pupillary Reactivity Unremarkable, Pupillary Size Unremarkable and Visual Vo Grossly Intact
Cranial Nerves III, IV, : Extraocular Movement: Extraocular Movement Full in all Directions
Muscle Strength, Overall: Full Throughout
Pronator Drift: No Drift in Upper Extremities
Data Reviewed
-
CT-A: Report Reviewed and Image Reviewed
MRI Head: Report Reviewed and Image Reviewed
Carotid Ultrasound: Report Reviewed
Echocardiogram: Report Reviewed
Labs: Report Reviewed
[2023-07-22] MEDS: PLAVIX 75 MG PO (08:16)
[2023-07-22] MEDS: ASPIR LOW (ENTERIC COATED) 81 MG PO (08:16)
[2023-07-22] MEDS: ZESTRIL 10 MG PO (08:16)
--- NOTE | 2023-07-22 11:27 | W.PN.HOSP.TC ---
Today's Communication/Plan
-
cont asa/plavix
CEA Monday
Assessment / Plan
Assessment / Plan
pt is a 73 year old female
Symptomatic left Carotid stenosis--apprec neuro--MRI reveals no acute intracranial pathology--US/CTA with high grade stenosis >90% of right carotid bulb, >85% left carotid bulb--for left CEA on Monday-- cont asa/plavix x 21 days--cont lipitor--PT/OT
Essential HTN - chronic-- cont Lisinopril
VCD for DVTp
Code status --Full code
Anticipated Discharge: > 48 hours
Subjective/Interval History
-
Date of Service: July 22, 2023
pt waiting for CEA
Objective Data
-
Vital Signs:
max temp for 24 hours
07/21/23
23:00
Temp 98.0 F
Vital Signs
Temp Pulse Resp BP Pulse Ox
97.7 F 59 17 162/63 96
07/22/23 11:10 07/22/23 11:10 07/22/23 11:10 07/22/23 11:10 07/22/23 11:10
I&O
07/21/23 07/22/23 07/23/23
06:59 06:59 06:59
Intake Total 620 / 620
Balance 620 / 620
Review of Systems
-
All other systems: Reviewed and negative
Physical Exam
-
General: Well Developed, Well Nourished and No Apparent Distress
HEENT: Normocephalic and Atraumatic
Respiratory: Clear to Auscultation; Negative Wheezes or Rhonchi
Cardiac: Regular Rhythm and S1/S2; Negative Murmur
GI: Soft, Nontender, Nondistended and Normal Bowel Sounds
Musculoskeletal: No Clubbing, No Cyanosis and No Edema
Neuro: Awake
--- NOTE | 2023-07-22 12:15 | PTOTSP ---
DC OT at this time she has no functional deficits. Please reconsult if needed after Monday procedure.
[2023-07-22] MEDS: LIPITOR 20 MG PO (18:13)
[2023-07-23] VITALS (7 sets, daily range): BP systolic 158–198; BP diastolic 63–84
[2023-07-23] MEDS: ZESTRIL 10 MG PO (08:08)
[2023-07-23] MEDS: ASPIR LOW (ENTERIC COATED) 81 MG PO (08:08)
[2023-07-23] MEDS: PLAVIX 75 MG PO (08:08)
[2023-07-23 09:49] LABS: Hematocrit 40.7 % (37.0-47.0); Hemoglobin 13.9 g/dL (12.0-16.0); Mean Corp Hgb Conc. 34.2 g/dL (33.0-37.0); Mean Corpuscular Hgb 32.2 pg (27.0-31.0); Mean Corpuscular Volume 94.2 fL (81.0-99.0); Platelet Count 181 10^3/uL (130-400); Red Blood Cell Count 4.32 10^6/uL (4.20-5.40); Red Cell Dist. Width 13.2 % (11.5-14.5)
[2023-07-23 10:02] LABS: Blood Urea Nitrogen 18 mg/dl (7-17); Calcium 9.8 mg/dl (8.4-10.2); Carbon Dioxide 23 mmol/L (22-30); Chloride 105 mmol/L (98-107); Estimated Creatinine Clearance 79 ml/min; Glucose 170 mg/dl (70-99); Potassium 4.6 mmol/L (3.5-5.1); Sodium 137 mmol/L (135-145); eGFR > 60.00
--- NOTE | 2023-07-23 10:05 | W.PN.HOSP.TC ---
Today's Communication/Plan
-
NPO post MN
CEA in AM
remains on asa/plavix
Assessment / Plan
Assessment / Plan
pt is a 73 year old female
Symptomatic left Carotid stenosis--apprec neuro--MRI reveals no acute intracranial pathology--US/CTA with high grade stenosis >90% of right carotid bulb, >85% left carotid bulb--for left CEA on Monday-- cont asa/plavix x 21 days--cont lipitor--PT/OT
Essential HTN - chronic-- cont Lisinopril
VCD for DVTp
Code status --Full code
Anticipated Discharge: > 48 hours
Subjective/Interval History
-
Date of Service: July 23, 2023
pt waiting for surgery for CEA
Objective Data
-
Labs:
Laboratory Results
07/23/23
09:05
WBC 6.0
Hgb 13.9
Hct 40.7
Plt Count 181
Sodium 137
Potassium 4.6
Chloride 105
Carbon Dioxide 23
BUN 18 H
Creatinine 0.6
Glucose 170 H
Calcium 9.8
Vital Signs:
max temp for 24 hours
07/22/23
19:05
Temp 98.5 F
Vital Signs
Temp Pulse Resp BP Pulse Ox
98.6 F 56 17 162/74 97
07/23/23 07:44 07/23/23 07:44 07/23/23 07:44 07/23/23 07:44 07/23/23 07:44
I&O
07/22/23 07/23/23 07/24/23
06:59 06:59 06:59
Intake Total 620 / 620 1400 / 1400
Balance 620 / 620 1400 / 1400
Review of Systems
-
All other systems: Reviewed and negative
Physical Exam
-
General: Well Developed, Well Nourished and No Apparent Distress
HEENT: Normocephalic and Atraumatic
Respiratory: Clear to Auscultation; Negative Wheezes or Rhonchi
Cardiac: Regular Rhythm and S1/S2; Negative Murmur
GI: Soft, Nontender, Nondistended and Normal Bowel Sounds
Musculoskeletal: No Clubbing, No Cyanosis and No Edema
Skin: Warm
Neuro: Awake
[2023-07-23] MEDS: APRESOLINE 5 MG IV (11:29)
--- NOTE | 2023-07-23 12:49 | CM ---
Met with patient and at bedside; initial assessment completed
Pharmacy verified: [facility]
Patient scheduled for CEA procedure tomorrow morning
Patient reported that she and her live in a one floor home; 2 steps to enter; bathroom has walk-in shower with grab bar
PLOF: patient reported that she is independent with ADLs and ambulation; Drives
DME: none
SNF/Rehab/Home Health utilization history: none
Transportation: will provide ride home
Plan: discharge to home when medically stable; will monitor for discharge needs
[2023-07-23] MEDS: LIPITOR 20 MG PO (17:02)
[2023-07-24] VITALS (17 sets, daily range): BP systolic 115–192; BP diastolic 53–96
[2023-07-24] MEDS: APRESOLINE 5 MG IV ×2 (05:09→22:47)
--- NOTE | 2023-07-24 05:32 | PTCARENOTE ---
Surgical clip & prep with CHG cloths completed. Linens and gown changed. Emotional support/preop instruction provided. Plan of care ongoing.
[2023-07-24] MEDS: PERIDEX 0.12% ORAL RINSE 15 ML PO (05:40)
[2023-07-24] MEDS: BACTROBAN 2% OINTMENT 1 APPLIC NASAL (05:40)
--- NOTE | 2023-07-24 06:23 | PTCARENOTE ---
Verbal report to Cyndi in [employer]. Transported via stretcher w/conference services director antibiotic and chart.
[2023-07-24 07:01] LABS: Hematocrit 43.8 % (37.0-47.0); Hemoglobin 15.2 g/dL (12.0-16.0); Mean Corp Hgb Conc. 34.7 g/dL (33.0-37.0); Mean Corpuscular Hgb 32.3 pg (27.0-31.0); Mean Corpuscular Volume 93.2 fL (81.0-99.0); Mean Platelet Volume 13.7 fL (7.4-10.4); Platelet Count 187 10^3/uL (130-400); Red Cell Dist. Width 13.2 % (11.5-14.5); White Blood Cell Count 5.8 10^3/uL (4.8-10.8)
--- NOTE | 2023-07-24 07:30 | W.SUR.PREOP ---
Pre-Operative Surgical Note
-
I have examined this patient prior to the performance of the scheduled procedure.
The patient's condition is unchanged from the time of the current History and
Physical and the patient is able to undergo the scheduled procedure.
[2023-07-24 07:34] LABS: Blood Urea Nitrogen 18 mg/dl (7-17); Carbon Dioxide 24 mmol/L (22-30); Chloride 107 mmol/L (98-107); Estimated Creatinine Clearance 79 ml/min; Glucose 120 mg/dl (70-99); Potassium 4.6 mmol/L (3.5-5.1); Sodium 139 mmol/L (135-145); eGFR > 60.00
--- NOTE | 2023-07-24 10:47 | W.SUR.POST ---
Surgical Immediate Post Op
Note
Pre Op Diagnosis: carotid stenosis
Post Op Diagnosis: same
Procedure Performed: Left carotid endarterectomy with bovine pericardial patch angioplasty, EEG monitoring, an shunt
Primary Surgeon: Morales
Assist: Jeniffer LOPEZ
Anesthesia: general
Estimated Blood Loss: 200cc
Fluids: see anesthesia flow sheet
Drains/Shunts: shunt- removed
Specimens/Cultures: carotid plaque
Doppler/Duplex/Angio (Y/N): Y
Complications: none
Operative Findings: woke from anesthesia moving all extremities
[2023-07-24] MEDS: DILAUDID 0.25 MG IV (11:40)
[2023-07-24] MEDS: NSS 1000 IV ×2 (11:44→22:57)
--- NOTE | 2023-07-24 11:47 | OR.RPT ---
Operative Report
Operative Report
PROCEDURE DATE: 07/24/2023
Preoperative diagnosis: Symptomatic critical left carotid artery stenosis.
Postoperative diagnosis: Same
Procedure: Left carotid endarterectomy with bovine pericardial patch angioplasty and intraoperative EEG/SSEP monitoring. (Temporary intraoperative carotid shunt placement).
Surgeon: Morales
Cinder Man: OKSANA Swift
Complications: None
Anesthesia: General
Indications for procedure:
Critical left carotid stenosis with recent symptomatology (right upper and lower extremity sensory loss) felt by neurology to be related to left carotid stenosis. Risk/benefits/alternatives of revascularization were all extensively discussed.
Patient had severe right carotid stenosis, asymptomatic as well. She understood all wish to proceed.
Description of procedure:
Patient was identified brought to the operating room placed on the table in supine position. After the adequate administration of anesthesia and perioperative antibiotics she was prepped and draped in the standard surgical fashion. A standard
preoperative timeout was undertaken and everybody was in agreement the plan. A standard longitudinal incision was made in the left neck that was carried through the skin subcutaneous tissue. Using the electrocautery dissection was carried through
the platysma muscle layer and then alongside the anterior medial border of the sternocleidomastoid muscle. Then using a combination of sharp dissection with the Metzenbaum scissors and electrocautery I dissected along the anterior medial border of
the internal jugular vein. The common facial vein branch was ligated between silk ties and then divided (note it was a relatively inferior/low common facial vein branch). I then deepened my retraction. The common carotid artery was identified and
carefully dissected away from the surrounding structures take great care to avoid any injury to the structures. A vessel loop was passed around it which was double looped, but not yet tightened. Note the vagus nerve was not definitively seen in
her field, but care was taken to dissect only on the surface of the carotid artery to avoid any inadvertent injury. I then continued my dissection up the common carotid artery to the bulb staying only on the anterior surface of the carotid artery.
Then I carried the dissection up to the internal carotid artery and then to the distal internal carotid artery. I identified where it was soft and carefully circumferentially dissected the internal carotid artery with minimal mobilization and
passed a vessel loop around it. Note the hypoglossal nerve was preserved from harm's way. The patient was given an appropriate dose of heparin 7 units. Next I dissected the anterior surface of the external carotid artery and superior thyroid
branches. These were then carefully circumferentially dissected with minimal mobilization and vessel loops passed around these which were double looped but not yet tightened. After 3 minutes of heparin circulation time and confirmation of
optimization of the blood pressure with my anesthesiology colleagues, I clamped the distal internal carotid artery where it was soft. There was no immediate EEG or SSEP changes. After 1 minute of test clamp time there was no changes noted.
Therefore at this point, the vessel loops on the external carotid artery and superior thyroid branches were tightened and the common carotid artery was clamped where it was soft proximally. EEG/SSEP waveforms remained stable. An arteriotomy was
made on the common carotid artery with an 11 blade and extended using a Mathews scissor. Was extended the arteriotomy onto the mid to distal internal carotid artery. There was bulky mixed plaque in the proximal internal carotid artery causing a
severe stenosis as noted on CT scan. No eleonora piecemeal hemorrhagic plaque, but the central portion was soft. A Covert was then used to endarterectomized the plaque. An endarterectomy plane was created, and the plaque was then endarterectomized.
Distally I feathered the plaque out to a nice clean endpoint in the distal internal carotid artery. I had to extend my arteriotomy and clamp slightly more distally on the internal carotid artery to get to a nice clean endpoint. The posterior
thickened intima/plaque did extend up slightly and therefore I had to extend. Next I endarterectomized the intima back to normal intima in the common carotid artery, and the intima was cut flush there. I then grasped the plaque and everted plaque
out of the origin of the external carotid artery. The plaque was then sent off for specimen. The proximal endpoint in the common carotid artery had some loose intima/thickened intima on the medial aspect and therefore I had to dissect more
proximally on the common carotid artery and then shift my clamp and then extended my arteriotomy proximally. Then I was able to grasp the thickened intima portion that was loose as well and then cut this flush so that it was nicely adherent
proximally in the common carotid artery. The origin of the external carotid artery was carefully visualized and any fine debris were removed with fine forceps. Proximal and distal endpoints were then carefully inspected. Any fine debris was
removed with fine forceps, and the intima was noted to be nicely adherent proximally distally. Next any fine debris were removed throughout the endarterectomy bed with fine forceps. Interrupted 7-0 Prolene tacking sutures were placed on the
proximal and distal endpoints just to be certain. I then flushed heparinized saline. I was very satisfied. Then, I used a bovine pericardial patch to sew a patch angioplasty with a running 6-0 Prolene suture. While suturing my patch, we had a
episode of hypotension. During this time SSEP findings in the right upper and right lower extremity were noted to be slowed. I had prepared a shunt, but first we tried getting the blood pressure up. Still did not improved and therefore I quickly
placed the shunt into the internal carotid artery (Turon shunt), allowed to backbleed and then placed it into the common carotid artery. Shunt clamps were placed proximally and distally. At this point the pressure improved and with the shunt
there was immediate resolution to baseline of the SSEPs. EEG tracings never changed. I now continued my suture line of the patch with a shunt in place. Prior to completing and tying down my suture line, I remove my shunt and then reclamped the
internal and common carotid artery. I sequentially backbled the arterial branches and then reclamped each 1 prior to unclamping the next 1. I then irrigated heparinized saline. I then quickly completed and tied down my suture line. No during
this period of time, pressures were maintained and there was no diminishment in EEG/SSEP findings. We then restored flow in the common carotid and external carotid arteries. Finally, we released flow in the internal carotid artery. There was
excellent pulsatile flow in all 3 vessels. There was an excellent Doppler signal in the internal carotid artery distal to the patch with a good normal low resistance Doppler signal. There was a good Doppler signal in the external carotid artery as
well. 6-0 Prolene [id number]-[id number] sutures were placed along any bleeding points along the suture line. Protamine was given to reverse the heparin. Hemostasis was meticulously achieved, and then confirmed. I then closed in layers with 2-0 Vicryl
layer to reapproximate the sternocleidomastoid muscle, followed by 3-0 Vicryl platysma muscle running layer, followed by 4 Monocryl subcuticular stitch. Dermabond was applied. The patient tolerated procedure well. She awoke moving all extremities
to command with tongue in the midline.
[2023-07-24 11:57] LABS: Hematocrit 34.4 % (37.0-47.0); Mean Corp Hgb Conc. 34.9 g/dL (33.0-37.0); Mean Corpuscular Hgb 33.1 pg (27.0-31.0); Mean Corpuscular Volume 94.8 fL (81.0-99.0); Mean Platelet Volume 13.9 fL (7.4-10.4); Platelet Count 142 10^3/uL (130-400); Red Blood Cell Count 3.63 10^6/uL (4.20-5.40); Red Cell Dist. Width 13.5 % (11.5-14.5); White Blood Cell Count 11.7 10^3/uL (4.8-10.8)
[2023-07-24 12:04] LABS: Blood Urea Nitrogen 15 mg/dl (7-17); Calcium 8.2 mg/dl (8.4-10.2); Carbon Dioxide 21 mmol/L (22-30); Chloride 111 mmol/L (98-107); Estimated Creatinine Clearance 79 ml/min; Glucose 145 mg/dl (70-99); Potassium 4.1 mmol/L (3.5-5.1); Sodium 137 mmol/L (135-145); eGFR > 60.00
--- NOTE | 2023-07-24 12:27 | TRANSFER ---
Transferred to ICU, VSS, neurochecks WNL, WORKERS COMPENSATION ADMINISTRATOR Joan made aware of Narcan admin. Terrence nolasco RN BSN.
[2023-07-24] MEDS: ZESTRIL PO (13:18)
[2023-07-24] MEDS: TYLENOL 650 MG PO (13:52)
[2023-07-24] MEDS: ASPIR LOW (ENTERIC COATED) 81 MG PO (13:52)
[2023-07-24] MEDS: PLAVIX 75 MG PO (13:52)
--- NOTE | 2023-07-24 14:02 | W.PN.NEURO.1 ---
Today's Communication / Plan
-
-Seen post operatively, no new neuro deficits
-Neuro checks and NIH scales
-SBP control would aim for SBP maximum less than 180
-Aspirin and Plavix, Plavix 21 days total (End date of Plavix 08/09)
-Try small increase Atorvastatin to 20 mg daily, monitor for any new muscle aches
-Pain control post op
-Eventually will have asymptomatic high grade right carotid stenosis assessed for revascularization
Neuro Assessment/Plan
Assessment
Symptomatic left carotid stenosis producing several episodes of TIA with sensory symptoms of right face/lip, arm and leg, several episodes first starting around 4 weeks ago.
High grade stenosis around 80-90% of the left carotid artery.
Asymptomatic high grade stenosis and near occlusion of right carotid artery.
MRI brain negative for acute infarct, mild/moderate ischemic small vessel disease on white matter
Empty sella seen on brain MRI is asymptomatic
Risk factors of previous smoking, hypertension, prediabetes
Subjective/Objective
Subjective Data
Date of Service: July 24, 2023
No acute events, some nausea after surgery today, some neck pain, discussed questions
Objective Data
Vital Signs
Temp Pulse Resp BP Pulse Ox
97.8 F 75 13 132/59 96
07/24/23 12:34 07/24/23 13:00 07/24/23 13:00 07/24/23 13:00 07/24/23 13:38
Lab Results
07/24/23 11:23
07/24/23 11:23
PT 15.0 Sec (11.4-14.6) H 07/24/23 11:23
INR 1.20 07/24/23 11:23
APTT 28.0 Sec (23.4-35.0) 07/24/23 11:23
Sodium 137 mmol/L (135-145) 07/24/23 11:23
Potassium 4.1 mmol/L (3.5-5.1) 07/24/23 11:23
BUN 15 mg/dl (7-17) 07/24/23 11:23
Glucose 145 mg/dl (70-99) H 07/24/23 11:23
Calcium 8.2 mg/dl (8.4-10.2) L D 07/24/23 11:23
LDL Cholesterol, Calc 88 mg/dl 07/21/23 06:29
Patient Allergies
No Known Allergies Allergy (Unverified 07/20/23 13:37)
LDL Level: >70, statin ordered
Review of Systems
-
History Source: Patient
All other systems: Reviewed and negative
Constitutional: No Symptoms
EENT: No Symptoms Reported
Respiratory: No Symptoms
Cardiac: No Symptoms
Abdomen/GI: No Symptoms
Genitourinary: No Symptoms
Musculoskeletal: No Symptoms
Skin: No Symptoms
Neuro: Numbness
Endocrine: No Symptoms
Hematologic / Lymphatic: No Symptoms
Allergy / Immunology: No Symptoms
Physical Exam
-
General: Comfortable
Eyes: No Ptosis
HEENT: Normocephalic
Neck: Other (Left CEA incision clean dry intact)
Respiratory: Clear to Auscultation
Cardiac: Regular Rhythm
GI: Other (Nausea)
Skin: Unremarkable
Extremities: No Clubbing
Psych: Unremarkable
Extended Neurological Exam
Attention Span & Concentration: Awake, Alert and Interactive
Memory: Unremarkable
Tremor: Hand Tremor Absent
Involuntary Movement: None
Speech: Quality Unremarkable and Quantity Unremarkable; Negative Expressive Aphasia, Receptive Aphasia or Dysarthric
Cranial Nerve II: Left Eye: Pupillary Reactivity Unremarkable and Pupillary Size Unremarkable
Cranial Nerve II: Right Eye: Pupillary Reactivity Unremarkable and Pupillary Size Unremarkable
Cranial Nerves III, IV, : Extraocular Movement: Extraocular Movement Full in all Directions
Cranial Nerve VII: Facial Symmetry: Normal Facial Symmetry
Muscle Strength, Overall: Full Throughout
Pronator Drift: No Drift in Upper Extremities
Deep Tendon Reflexes: Trace Throughout
Touch Sensation: Unremarkable
Data Reviewed
-
CT-A: Report Reviewed and Image Reviewed
CT Head: Report Reviewed and Image Reviewed
MRI Head: Report Reviewed and Image Reviewed
Labs: Report Reviewed
--- NOTE | 2023-07-24 14:48 | CON.INTV ---
Consultation
Consultation Request
Date/Time Consultation Requested: 07/24/2023
Date/Time Consultation Performed: 07/24/2023
Requesting Provider: Dr. Nielsen
Performing Provider: Dr. Hussain Younger
Reason for Consultation: Postoperative ICU care status post left carotic endarterectomy
Medical History
-
History of Present Illness:
73-year-old woman with symptomatic left carotid stenosis, patient has bilateral disease. Evaluated by vascular surgery she was deemed candidate for revascularization.
Underwent carotic endarterectomy on 07/24/2023.
Past Medical History
Past Medical History: Other (See assessment and plan section)
Social History
Tobacco: Non-smoker
Alcohol: Daily
Drug: None
Personal:
Living: With Family
Family History
Family History: Reviewed & Not Pertinent
Allergies / Home Medications
Allergies
Allergy/AdvReac Type Severity Reaction Status Date / Time
No Known Allergies Allergy Unverified 07/20/23 13:37
Home Medications
�Medication �Instructions �Recorded �Confirmed �Last Taken �Type
Vitamin Powder 1 tbsp PO DAILY Supplement 07/20/23 07/20/23 07/20/23 History
acetaminophen 500 mg tablet 1,000 mg PO DAILYPRN PRN mild pain 07/20/23 07/20/23 Unknown History
(Tylenol Extra Strength)
ascorbic acid 1,000 1 ea PO DAILY Supplement 07/20/23 07/20/23 07/20/23 History
vy-qvdwbriizuli-wnzfgftk powder
effervescent pack (Emergen-C)
atorvastatin 10 mg tablet 10 mg PO QPM High Cholesterol 07/20/23 07/20/23 07/19/23 History
lisinopril 10 mg tablet 10 mg PO DAILY High Cholesterol 07/20/23 07/20/23 07/20/23 History
naproxen sodium 220 mg tablet 440 mg PO HSPRN PRN mild pain 07/20/23 07/20/23 2 Weeks Ago History
(Aleve) ~07/06/23
Review of Systems
-
History Source: Patient
All other systems: Negative unless noted
Vitals / Labs / Diagnostic Testing
Vital Signs
Temp Pulse Resp BP Pulse Ox
97.8 F 78 17 132/59 97
07/24/23 12:34 07/24/23 14:00 07/24/23 14:00 07/24/23 13:00 07/24/23 14:00
Lab Data
07/24/23 11:23
07/24/23 11:23
Laboratory Results
07/24/23
11:23
PT 15.0 H
INR 1.20
APTT 28.0
Diagnostic Testing:
Physical Exam
-
HEENT: Normocephalic
Cardiovascular: S1/S2
Respiratory: Clear and Non-Labored Respirations
GI: Soft and Non Distended
Neurology: Awake and Alert
Skin: Warm
General: Respiratory Distress (n)
Assessment
-
Status post Left carotid endarterectomy with bovine pericardial patch angioplasty and intraoperative EEG/SSEP monitoring 07/24/2023 Dr. Nielsen
Conditions present prior admission:
Bilateral carotid artery stenosis:
CT angiogram of the head and neck: High-grade stenosis of the bilateral carotid bulbs secondary to severe atherosclerosis. Greater than 90% luminal diameter reduction to near occlusion of the right carotid bulb. Greater than 85% luminal diameter
reduction of the left carotid bulb.
Hypertension
Non insulin-dependent diabetes
Hyperlipidemia
Daily alcohol consumption
-
Assessment and plan:
Postoperative surgical intensive care unit monitoring
Supplemental oxygen as needed
Incentive spirometry
Aspiration precautions
Surgical incision is intact without hematoma.
No stridor on exam
Analgesia with as needed narcotics
Monitor respiratory status closely.
Neuro and vascular checks per protocol
Vascular surgery following-correspondence and operative notes reviewed
Monitor blood pressure
Allow for mild permissive hypertension
Cardene drip if needed
Follow hemoglobin
Follow blood sugars
Insulin supplementation as needed
DVT prophylaxis
Early nutrition
Early mobilization
-
--- NOTE | 2023-07-24 14:50 | PTCARENOTE ---
Received pt from [facility] around 1230. Neuro intact. L radial manjeet zeroed and transduced. L neck incision approximated with no s/s of bleeding or hematoma. ICe pack prn to incision. Pt drowsy, but easily arouses. Attempted on room air, but sats
low 80s. Pt is c/o nausea. Encouraged po until anesthesia wears off given drowsiness. Sniffs of alcohol pads helping with nausea. Otherwise please see assessment.
--- NOTE | 2023-07-24 15:40 | W.PN.HOSP.TC ---
Today's Communication/Plan
-
monitor in icu
d/c tomorrow
Assessment / Plan
Assessment / Plan
pt is a 73 year old female
Symptomatic left Carotid stenosis
s/p Left CEA on 07/23
-appreciate neuro--MRI reveals no acute intracranial pathology--US/CTA with high grade stenosis >90% of right carotid bulb, >85% left carotid bulb-
-cont asa/plavix x 21 days
-cont lipitor
-got left CEA today, uncomplicated procedure. monitor in ICU
Essential HTN - chronic-- cont Lisinopril
NIDDM
-a1c of 6.4
-will start metformin
-f/u with PCP
VCD for DVTp
Code status --Full code
Anticipated Discharge: Within 24 hours
Subjective/Interval History
-
Date of Service: July 24, 2023
Some left-sided neck pain
Minor sore throat
No other complaint
Objective Data
-
Labs:
Laboratory Results
07/24/23 07/24/23
06:49 11:23
WBC 5.8 11.7 H
Hgb 15.2 12.0 D
Hct 43.8 34.4 L
Plt Count 187 142 D
PT 15.0 H
INR 1.20
APTT 28.0
Sodium 139 137
Potassium 4.6 4.1
Chloride 107 111 H
Carbon Dioxide 24 21 L
BUN 18 H 15
Creatinine 0.5 L 0.5 L
Glucose 120 H 145 H
Calcium 10.0 8.2 L D
Vital Signs:
Vital Signs
Temp Pulse Resp BP Pulse Ox
98.1 F 80 14 132/59 96
07/24/23 15:05 07/24/23 15:00 07/24/23 15:00 07/24/23 13:00 07/24/23 15:05
I&O
07/23/23 07/24/23 07/25/23
06:59 06:59 06:59
Intake Total 1400 / 1400 1919 126 / 126
Balance 1400 / 1400 1919 126 / 126
Review of Systems
-
Respiratory: Reports No Symptoms
Cardiac: Reports No Symptoms
Abdomen/GI: Reports No Symptoms
Physical Exam
-
General: No Apparent Distress and Comfortable
HEENT: Oxygen and Other (Left neck clean incision)
Respiratory: Clear to Auscultation
Cardiac: Regular Rhythm and S1/S2; Negative Murmur or Rub
GI: Soft, Nontender, Nondistended and Normal Bowel Sounds
Musculoskeletal: No Edema
Neuro: Awake, Alert, Oriented, No Motor Deficits and Nonfocal/Grossly Intact
Psych: Calm
--- NOTE | 2023-07-24 15:43 | PTOTSP ---
Speech Language Pathology
New COMMISSIONER [employer] orders required post general anesthesia if swallow evaluation warranted.
[2023-07-24] MEDS: HEPARIN 5000 UNITS SC (16:05)
[2023-07-24] MEDS: ZOFRAN 4 MG IV (16:40)
--- NOTE | 2023-07-24 16:59 | PTCARENOTE ---
Pt called secondary to vomiting, all water mostly. Pt reports happens with anesthesia and she doesn't do well with nausea. Obtained order for zofran. Otherwise assessment unchanged. Neuro remains intact.
[2023-07-24] MEDS: LIPITOR 20 MG PO (17:59)
--- NOTE | 2023-07-24 20:17 | PTCARENOTE ---
Assumed care of patient. Patient AOx3, neuro check completed. Laying in bed comfortably. Patients incision CDI, open to air, no hematoma, soft. Pt assessed. See worklist for full assessment. No complaints of pain or nausea at this time. Call soto
within reach. Will continue to monitor.
[2023-07-24] MEDS: TYLENOL 1000 MG PO (22:46)
[2023-07-25] VITALS (20 sets, daily range): BP systolic 99–194; BP diastolic 47–75
--- NOTE | 2023-07-25 00:33 | PTCARENOTE ---
Patient reassessed, continued neuro checks, see work list. BP high around 2148-3764, administered 5 mg IVP hydralazine per order,see MAR. Will continue to monitor.
[2023-07-25] MEDS: HEPARIN 5000 UNITS SC ×2 (00:53→07:35)
--- NOTE | 2023-07-25 02:22 | PTCARENOTE ---
Patients A-line not working well, unable to gain adequate waveform and ABP reading. ABP's not matching cuff pressures. A-line transduced, zeroed, flushed, manually flushed with no success. Notified PAYMENT SPECIALIST, OK to monitor cuff pressures for the rest of
the evening and remove a-line. Will continue to monitor.
[2023-07-25 05:26] LABS: Hematocrit 36.1 % (37.0-47.0); Hemoglobin 11.9 g/dL (12.0-16.0); Mean Corpuscular Hgb 32.7 pg (27.0-31.0); Mean Corpuscular Volume 99.2 fL (81.0-99.0); Mean Platelet Volume 14.1 fL (7.4-10.4); Platelet Count 150 10^3/uL (130-400); Red Blood Cell Count 3.64 10^6/uL (4.20-5.40); Red Cell Dist. Width 13.7 % (11.5-14.5); White Blood Cell Count 11.1 10^3/uL (4.8-10.8)
[2023-07-25 05:28] LABS: INR 1.09; PT 13.9 Sec (11.4-14.6)
[2023-07-25 05:29] LABS: APTT 32.5 Sec (23.4-35.0)
--- NOTE | 2023-07-25 05:30 | PTCARENOTE ---
A-line removed. Held pressure for >5 mins, no bleeding. Gauze and tegaderm applied. No other changes in assessment at this time.
[2023-07-25 05:41] LABS: Blood Urea Nitrogen 11 mg/dl (7-17); Calcium 8.8 mg/dl (8.4-10.2); Carbon Dioxide 22 mmol/L (22-30); Chloride 111 mmol/L (98-107); Estimated Creatinine Clearance 79 ml/min; Glucose 119 mg/dl (70-99); Potassium 4.2 mmol/L (3.5-5.1); Sodium 140 mmol/L (135-145); eGFR > 60.00
--- NOTE | 2023-07-25 07:25 | W.PN.VS ---
Addendum entered and electronically signed by Siva Petersen III, MD 07/25/23 09:57:
This patient was seen and examined with JESSICA Morales. I agree with the history and physical exam as well as the assessment and plan.
Signed:
Siva Petersen III, MD
[facility] Vascular Surgery
[phone] (knuq)
Original Note:
Today's Communication / Plan
-
Patient seen evaluated bedside with Dr. Siva Petersen III, below plan reviewed with attending.
Assessment/Plan
-
Assessment: 73-year-old female with symptomatic left carotid stenosis, POD #1 left carotid endarterectomy
Plan:
OOB to chair with progression to ambulation as tolerated
Continue p.o. diet as tolerated
Discontinue IV fluids
Possible clearance for discharge later this afternoon
Subjective Data
-
Date of Service: July 25, 2023
Patient seen and examined at the bedside, denies nausea, vomiting, fever, chills, unilateral weakness, vision changes, aphasia, dysphagia, and dysarthria. Does endorse very mild tension style headache across forehead, that she believes is related
to light recent lack of caffeine intake. Reports adequate postoperative pain management. Radial line removed overnight.
Objective Data
-
Vital Signs
Temp Pulse Resp BP Pulse Ox
99.2 F 80 15 167/61 91
07/25/23 04:04 07/25/23 06:00 07/25/23 06:00 07/25/23 06:00 07/25/23 06:00
Intake and Output
07/24/23 07/25/23 07/26/23
06:59 06:59 06:59
Intake Total 1919 / 0 2286 / 2286
Output Total 1600 / 1600
Balance 1919 / 0 686 / 686
Intake:
Oral fluids 1919 / 192 731 / 731
IV fluids (Total) 1555 / 1555
Norm 75 / 75
Nss 1,000 ml @ 80 mls/hr IV . 1480 / 1480
[id number] ROBERTH Rx#:[id number]
Output:
Urine, Voided 1600 / 1600
Other:
Number of approximated MODERATE 2 1
amounts of urine
Number of approximated LARGE 1
amounts of urine
Lab Results
07/25/23 05:10
07/25/23 05:10
Calcium 8.8 mg/dl (8.4-10.2) 07/25/23 05:10
Magnesium 2.0 mg/dl (1.6-2.3) 07/22/23 08:53
Physical Exam
-
AAOx3, NAD
Left neck surgical site CDI, no hematoma, scant edema at medial side of incision, all surrounding areas soft, tongue midline, face symmetrical
No tachycardia
No dyspnea on room air
ABD nontender, nondistended
Bilateral upper and lower extremities 5/5 strength, bilateral lower extremities without edema
[2023-07-25] MEDS: ASPIR LOW (ENTERIC COATED) 81 MG PO (07:35)
[2023-07-25] MEDS: PLAVIX 75 MG PO (07:36)
[2023-07-25] MEDS: TYLENOL 650 MG PO (07:36)
[2023-07-25] MEDS: ZESTRIL 10 MG PO (07:40)
--- NOTE | 2023-07-25 07:50 | PTCARENOTE ---
Received pt in bed c/o mild frontal chin that pt reports resolved after standing and sitting up in chair. Mild discomfort noted at l neck. Medicated with tylenol as charted. Pt cleaned teeth and is sitting up in chair without complaint. Gait slow,
but steady. Stone. No c/o nausea at present, Placed on tele pack and encouraged to ambulate in room. Otherwise please refer to assessment
--- NOTE | 2023-07-25 08:23 | W.PN.HOSP.TC ---
Today's Communication/Plan
-
d/c home after vasc sx clearance
Assessment / Plan
Assessment / Plan
pt is a 73 year old female
Symptomatic left Carotid stenosis
s/p Left CEA on 07/23
-appreciate neuro--MRI reveals no acute intracranial pathology--US/CTA with high grade stenosis >90% of right carotid bulb, >85% left carotid bulb-
-On asa/plavix
-cont lipitor
-got left CEA yesterday, uncomplicated procedure. monitor in ICU
Essential HTN - chronic-- cont Lisinopril
NIDDM
-a1c of 6.4
-patient aware and does not want to start meds.
-f/u with PCP
VCD for DVTp
Code status --Full code
More than 30 minutes spent in discharge including
Final examination of the patient
Summarizing hospital stay
Instructions for continuing care to all relevant caregivers
Preparation of discharge records, prescriptions, and referral forms
Total time spent (in minutes): 38 mins
Anticipated Discharge: Today
Subjective/Interval History
-
Date of Service: July 25, 2023
no complains overnight
pain in left neck
Objective Data
-
Labs:
Laboratory Results
07/25/23
05:10
WBC 11.1 H
Hgb 11.9 L
Hct 36.1 L
Plt Count 150
PT 13.9
INR 1.09
APTT 32.5
Sodium 140
Potassium 4.2
Chloride 111 H
Carbon Dioxide 22
BUN 11
Creatinine 0.5 L
Glucose 119 H
Calcium 8.8
Vital Signs:
Vital Signs
Temp Pulse Resp BP Pulse Ox
98.6 F 80 15 156/57 91
07/25/23 07:54 07/25/23 06:00 07/25/23 06:00 07/25/23 07:40 07/25/23 06:00
I&O
07/24/23 07/25/23 07/26/23
06:59 06:59 06:59
Intake Total 1919 2286 / 2286
Output Total 1600 / 1600
Balance 1919 686 / 686
Review of Systems
-
Respiratory: Reports No Symptoms
Cardiac: Reports No Symptoms
Abdomen/GI: Reports No Symptoms
Physical Exam
-
General: No Apparent Distress and Comfortable
HEENT: Other (Left neck clean incision); Negative Oxygen
Respiratory: Clear to Auscultation
Cardiac: Regular Rhythm and S1/S2; Negative Murmur or Rub
GI: Soft, Nontender, Nondistended and Normal Bowel Sounds
Musculoskeletal: No Edema
Neuro: Awake, Alert, Oriented, No Motor Deficits and Nonfocal/Grossly Intact
Psych: Calm
--- NOTE | 2023-07-25 11:02 | CM ---
CM following re: discharge planning.
Reviewed pt's chart, met with pt and pt's at bedside.
Pt is POD #1 left carotid endarterectomy. Per Vascular Surgery, pt is doing well and will be discharged home later this afternoon.
Discharge order noted. Both [t and his spouse are aware, expressed their agreement with discharge. IMM reviewed, placed in chart, pt has a copy.
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
D/C plan: home with no needs. to transport.
--- NOTE | 2023-07-25 11:14 | W.PN.UPDATE ---
Update Note
Progress Note Update
Patient tolerated ambulation, continue p.o. intake of breakfast, reports complete resolution of headache, and offers no complaints. Left neck surgical site remains CDI with very very minimal stable edema at the medial aspect of surgical incision,
all surrounding areas remain soft. She continues to deny vision changes, paresthesia, unilateral weakness, dysphagia, aphasia, and dysarthria. Vascular surgery follow-up placed in discharge instructions, all questions and concerns addressed.
Cleared for discharge from vascular surgery perspective.
--- NOTE | 2023-07-25 11:49 | W.PN.INTV ---
Addendum entered and electronically signed by Jarocho Hoffman MD 07/27/23 07:27:
Addendum added on CDI request
Adjust diagnosis:
Anemia, multifactorial due to acute blood loss and hemodilution
Original Note:
Today's Communication / Plan
Recommendations
Discharge planning today
Sign off
Assessment
-
Status post Left carotid endarterectomy with bovine pericardial patch angioplasty and intraoperative EEG/SSEP monitoring 07/24/2023 Dr. Nielsen
Conditions present prior admission:
Bilateral carotid artery stenosis:
CT angiogram of the head and neck: High-grade stenosis of the bilateral carotid bulbs secondary to severe atherosclerosis. Greater than 90% luminal diameter reduction to near occlusion of the right carotid bulb. Greater than 85% luminal diameter
reduction of the left carotid bulb.
Hypertension
Non insulin-dependent diabetes
Hyperlipidemia
Daily alcohol consumption
-
Assessment and plan:
Doing very well postoperative day 1.
Stable hemodynamically
Complaining of a mild headache without blurry vision.
No stridor on exam
Incision appears to be intact without significant hematoma.
Tolerating diet
Increase activity per protocol
Discharge planning per primary team
Vascular surgery following-correspondence and operative notes reviewed
For discharge later today.
No additional recommendations per critical care team will sign off.
Subjective Dataa
Subjective Data
Date of Service:
Date of Service: July 25, 2023
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
Subjective:
Denies shortness of breath
Complaining of mild headache
Denies nausea or vomiting
Denies swallowing difficulties
Review of Systems
General: Fever (n)
Cardiopulmonary: Dyspnea (n)
GI: Abdominal Pain (n)
Neuro: Headache
Objective Data
Data Reviewed
Vital Signs / I&O / Oxygen:
Vital Signs
Temp Pulse Resp BP Pulse Ox
98.6 F 73 13 180/73 91
07/25/23 07:54 07/25/23 11:23 07/25/23 10:27 07/25/23 11:23 07/25/23 06:00
Intake and Output
07/24/23 07/25/23 07/26/23
06:59 06:59 06:59
Intake Total 1919 2286 / 2286 680 / 680
Output Total 1600 / 1600 425 / 425
Balance 1919 686 / 686 255 / 255
SaO2 91
Nasal Cannula flow liters per 2
minute
Physical Exam
General: Respiratory Distress (n)
HEENT: Normocephalic, Other (No stridor on exam) and Other (Left cervical incision is intact. No large hematoma)
Cardiovascular: S1-S2
Respiratory: Clear and Non-Labored Respirations
GI: Soft
Neurology: Awake, Alert and Oriented
Skin: Warm
Labs/Micro/Reports
Lab Data
07/25/23 05:10
07/25/23 05:10
Laboratory Results
07/24/23 07/25/23
11:23 05:10
PT 15.0 H 13.9
INR 1.20 1.09
APTT 28.0 32.5
[2023-07-25] MEDS: COZAAR 50 MG PO (12:10)
[2023-07-25] MEDS: CATAPRES 0.200000000000000011 MG PO (12:10)
--- NOTE | 2023-07-25 12:29 | PTCARENOTE ---
Pt has been neurologically intact t/o shift Went to take vitals for discharge and pt was noted to be hypertensive with sbp 180s. Pt reported being anxious regarding removing iv's. Iv site removed without difficulty and pt's sbp remained in 180s.
Dr Hoffman made aware and orders obtained for clonidine and cozaar. Meds given as ordered. If bp below 160 will discharge as ordered. Pt without symptoms. Denies pain. L neck unchanged.
--- NOTE | 2023-07-25 14:30 | PTCARENOTE ---
Pt's bp improved after medication as charted. JERE. No complaints. Reviewed discharge instructions with pt and as pt is sleepy after not having slept all night. Aware of new dose for cholesterol medication to start this evening. Aware
that all other medications do not need to be given until tomorrow unless she needs pain medicine.
--- NOTE | 2023-07-25 15:53 | PN.CDI ---
CDI
- -
CDI:
Physician Documentation Request
Admit Date: 07/20/23 17:22
Dear Doctor Dalton,
Clinical Indicators:
Patient admitted with symptomatic left carotid stenosis; s/p left CEA 07/23.
Anesthesia Report: EBL 200 ml
IVF: NSS @ 80 ml/hr x 2 liters
Hgb/Hct trend:
07/24/23 07/24/23 07/25/23
06:49 11:23 05:10
Hgb 15.2 12.0 D 11.9 L
Hct 43.8 34.4 L 36.1 L
Based on the above, could you clarify in the progress notes, the appropriate diagnosis, if significant, that supports the above abnormalities and additional evaluation, monitoring and/or treatment rendered:
Anemia, multifactorial due to acute blood loss and hemodilution
Anemia due to hemodilution only
Other, please specify
Use of terms such as suspected, likely, concern for, or probable (associated with a specific diagnosis that is being evaluated, monitored, or treated as if it exists) are acceptable and can be coded in the inpatient setting, when documented at the
time of discharge.
Thank you,
DORINA Gastelum RN
CDI Specialist
available via tiger text
Please use your independent medical judgment in providing your response.
--- NOTE | 2023-07-25 16:49 | W.DCSUMMARY ---
Discharge Summary
Discharge Data
Date of Admission: 07/20/23
Date of Discharge: 07/25/23
-
Pending Results: No
Hospital Course
Discharging Physician : Dr Jarocho Hoffman
Disposition : To home
Primary care physician : Dr Genet leroy
Principal Discharge diagnosis :
Symptomatic left carotid artery stenosis
Near complete right carotid artery stenosis
Chronic Discharge diagnosis :
Essential hypertension
Aui-[id number] diabetes mellitus
Hospital Course :
Patient is a 73-year-old female with mentioned past medical history came to ER for having intermittent right facial/hand and leg paresthesia for few weeks. Patient had an outpatient carotid ultrasound which showed bilateral high grade carotid
artery stenosis. Patient was sent in to ER for further evaluation. Neurology and vascular surgery was involved in care and patient had an MRI brain which ruled out any new stroke. Follow-up CTA of neck was done which showed complete right carotid
occlusion and high-grade left carotid stenosis. Neurology and vascular surgery discussed the finding and was deemed that patient symptoms where likely coming from left carotid arterial stenosis. Patient was offered elective left carotid
endarterectomy and underwent procedure on 07/23. Patient had left carotid endarterectomy with bovine pericardial patch angioplasty. Postprocedure patient was monitored in ICU. Patient was discharged home at this point with plan for patient to be
on aspirin and Plavix for 21 days followed by aspirin lifelong. Patient was discharged home with follow-up with vascular surgeon in office.
Of note patient have hemoglobin A1c of 6.4 and patient wants to follow-up with PCP and discuss further plan of initiation of medication.
Important imaging findings :
None
Procedure findings :
None
Discharge Plan
-
Patient Disposition: Home (Routine Discharge)
Discharge Diagnosis/Procedures: Left CEA
Condition: Fair
Diet: Low Cholesterol and Low Sodium
Activity: As tolerated
Driving Restrictions: Not until seen by your Dr
Bathing Restrictions: OK to Shower
Activity Restrictions/Additional Instructions:
If you experience severe constant headache, weakness to an arm or leg, change in vision, trouble speaking or any stroke-like symptom, call 911 immediately
If you experience swelling, increased bruising, drainage from neck site, or fever, please call the office
Stand Alone Forms: DC Instr - Vascular OR
Referrals:
Genet Leroy MD [Family Provider] - in one week
Anabel Bonner CRNP [Specified Professional Personl] - 08/08/23 1:00 pm
Prescriptions:
New
aspirin 81 mg Tablet,Delayed Release (Dr/Ec)
81 mg PO DAILY Qty: 30 0RF
oxycodone 5 mg Tablet
5 mg PO Q4HPRN PRN (Reason: mod sev pain) Qty: 15 0RF
atorvastatin 20 mg tablet
20 mg PO QPM Qty: 90 0RF
clopidogrel [Plavix] 75 mg tablet
75 mg PO DAILY Qty: 20 0RF
Continued
acetaminophen [Tylenol Extra Strength] 500 mg Tablet
1,000 mg PO DAILYPRN PRN (Reason: mild pain)
lisinopril 10 mg Tablet
10 mg PO DAILY
Emergen-C 1,000 mg Powder Effervescent In Packet
1 ea PO DAILY
Patient Comments:
07/20/2023, one packet.
Vitamin Powder
1 tbsp PO DAILY
Patient Comments:
07/20/2023, mixed greens supplement.
Discontinued
atorvastatin 10 mg Tablet
10 mg PO QPM
naproxen sodium [Aleve] 220 mg Tablet
440 mg PO HSPRN PRN (Reason: mild pain)
No Action
alprazolam 0.25 mg tablet
0.25 mg PO DAILY PRN (Reason: ANXIETY DURING CAR RIDES)
Rx Instructions:
LAST FILLED 05/08/2023 FOR 14 DAY SUPPLY
Discharge Orders:
Discharge Patient (As Directed); Ordered 07/25/23
Ordered By: Jarocho Hoffman
Discharge Date and Time
Print Language: MACEDONIAN
== END 2023-07-25 14:30 | disposition home or self-care (01) | DRG 38 ==
LOC: ICU 17:22
PROVIDERS: Internal Medicine; Nurse Practitioner Acute Care; ADMITTING PHYSICIAN Internal Medicine; ATTENDING PHYSICIAN Hospitalist; EMERGENCY PHYSICIAN Emergency Medicine; FAMILY PHYSICIAN Internal Medicine; OTHER PHYSICIAN Internal Medicine Cardiovascular Disease; OTHER PHYSICIAN Internal Medicine Critical Care Medicine; OTHER PHYSICIAN Student in an Organized Health Care Education/Training Program; OTHER PHYSICIAN Surgery Vascular Surgery
PROC: 03CN0ZZ Extirpation of Matter from Left External Carotid Artery, Open Approach (ICD-10-PCS; 2023-07-24)
PROC: 03UL0KZ Supplement Left Internal Carotid Artery with Nonautologous Tissue Substitute, Open Approach (ICD-10-PCS; 2023-07-24)
PROC: 03CL0ZZ Extirpation of Matter from Left Internal Carotid Artery, Open Approach (ICD-10-PCS; 2023-07-24)
PROC: 03CJ0ZZ Extirpation of Matter from Left Common Carotid Artery, Open Approach (ICD-10-PCS; 2023-07-24)
DX: I65.23 Occlusion and stenosis of bilateral carotid arteries (principal); D62 Acute posthemorrhagic anemia; I10 Essential (primary) hypertension; E11.9 Type 2 diabetes mellitus without complications; E78.00 Pure hypercholesterolemia, unspecified; Z79.899 Other long term (current) drug therapy; Z87.891 Personal history of nicotine dependence
CPT/HCPCS: 88304; 88311; 35301; 70450; 70496; 70498; 70551; 80048; 80061; 83036; 83735; 85025; 85027; 85610; 85730; 86850; 86900; 86901; 93005; 93306; 93880; 97162; 99285; Q9967

== ENCOUNTER → 2023-09-14 09:24 | Outpatient (REF) | payer MEDICARE, OTHER, SELFPAY | LOC: RAD 09:24 | PROVIDERS: ATTENDING PHYSICIAN Registered Nurse; FAMILY PHYSICIAN Internal Medicine | DX: I65.23 Occlusion and stenosis of bilateral carotid arteries (principal) | CPT/HCPCS: 93880 ==

== ENCOUNTER 2023-10-05 06:09 | Inpatient (IN) | payer MEDICARE, OTHER, SELFPAY ==
[2023-10-02 09:51] VITALS: BMI 29.8
[2023-10-02 10:36] LABS: % Basophils 0.5 % (0-2); % Eosinophils 2.1 % (0-6); % Immature Granulocytes 0.4 % (0-0.5); % Lymphocytes 36.8 % (20.5-51.1); % Monocytes 6.8 % (1.7-9.3); % Neutrophils 53.4 % (42.2-75.2); Absolute Eosinophils 0.2 10^3/uL (0-0.7); Absolute Lymphocytes 2.9 10^3/uL (1.2-3.4); Absolute Monocytes 0.5 10^3/uL (0.1-0.6); Absolute Neutrophils 4.2 10^3/uL (1.4-6.5); Hematocrit 38.7 % (37.0-47.0); Hemoglobin 13.7 g/dL (12.0-16.0); Mean Corp Hgb Conc. 35.4 g/dL (33.0-37.0); Mean Corpuscular Hgb 31.9 pg (27.0-31.0); Mean Corpuscular Volume 90.2 fL (81.0-99.0); Nucleated Red Blood Cells % 0 %; Red Blood Cell Count 4.29 10^6/uL (4.20-5.40); Red Cell Dist. Width 12.6 % (11.5-14.5); White Blood Cell Count 7.9 10^3/uL (4.8-10.8)
[2023-10-02 10:43] LABS: INR 0.97; PT 12.9 Sec (11.4-14.6)
[2023-10-02 10:44] LABS: APTT 29.1 Sec (23.4-35.0)
[2023-10-02 11:00] LABS: Blood Urea Nitrogen 14 mg/dl (7-17); Calcium 10.1 mg/dl (8.4-10.2); Carbon Dioxide 22 mmol/L (22-30); Chloride 100 mmol/L (98-107); Estimated Creatinine Clearance 81 ml/min; Glucose 108 mg/dl (70-99); Potassium 4.2 mmol/L (3.5-5.1); Sodium 134 mmol/L (135-145); eGFR > 60.00
[2023-10-02 11:09] LABS: Mean Platelet Volume 13.4 fL (7.4-10.4)
[2023-10-02 11:11] LABS: Platelet Count 181 10^3/uL (130-400)
[2023-10-05] VITALS (24 sets, daily range): BP systolic 114–221; BP diastolic 59–97; BMI 29.3
[2023-10-05 06:54] LABS: Glucose - Point of Care 117 mg/dl (70-99)
[2023-10-05] MEDS: PERIDEX 0.12% ORAL RINSE 15 ML PO (06:56)
[2023-10-05] MEDS: BACTROBAN NASAL 1 GRAM NASAL (06:56)
[2023-10-05] MEDS: NSS 500 IV (06:57)
--- NOTE | 2023-10-05 09:42 | OR.RPT ---
Addendum entered and electronically signed by Tomas Nielsen MD 10/05/23 09:55:
Correction the last line of description of procedure should read: 'She awoke moving all extremities to command with her tongue in the midline.'
Original Note:
Operative Report
Operative Report
PROCEDURE DATE: 10/05/2023
Preoperative diagnosis: Asymptomatic, critical right carotid artery stenosis.
Postoperative diagnosis: Same
Procedure: Right carotid endarterectomy with bovine pericardial patch angioplasty and intraoperative EEG/SSEP monitoring.
Surgeon: Morales
Lance Crewmember: Radha Vuong NP required for all aspects of procedure including assistance with traction/countertraction, assistance with following suture line, assistance with closure.
Complications: None
Anesthesia: General
Indications for procedure:
History of symptomatic left carotid stenosis status post revascularization. Severe right carotid stenosis with mixed concerning appearing plaque. Risk/benefits/alternatives of revascularization were fully discussed. Patient understood all wish to
proceed.
Description of procedure:
Patient was identified brought to the operating room placed on the table in supine position. After the adequate administration of anesthesia and perioperative antibiotics she was prepped and draped in the standard surgical fashion. A standard
preoperative timeout was undertaken and everybody was in agreement the plan. A standard longitudinal incision was made in the right neck that was carried through the skin subcutaneous tissue. Using the electrocautery dissection was carried through
the platysma muscle layer and then alongside the anterior medial border of the sternocleidomastoid muscle. Then using a combination of sharp dissection with the Metzenbaum scissors and electrocautery I dissected along the anterior medial border of
the internal jugular vein. The common facial vein branch was ligated between silk ties and then divided. I then deepened my retraction. The common carotid artery was identified and carefully dissected away from the surrounding structures take
great care to avoid any injury to the structures. A vessel loop was passed around it proximally where it was soft. Now I continued to dissect up towards the bifurcation. Note, this proved to be very challenging. The carotid sheath itself was
very inflamed. The vagus nerve was noted to be on the anterior lateral surface of the common carotid artery. The tissues were so inflamed at the carotid bifurcation that the vagus nerve was inflamed/stuck to the carotid artery. I had to carefully
without grasping the nerve dissected this off. It was somewhat like chiseling scar tissue or rind. Once I carefully mobilized the vagus nerve off of the carotid/carotid bifurcation, I carefully dissected the internal carotid artery distally.
However it was so inflamed and encased in such a rind that this proved to be challenging. Even when I came back to the bifurcation to try to start the dissection plane on the rind it was challenging. 1 thing I found useful was to dissect the
external carotid artery carefully circumferentially with minimal mobilization and passed a vessel loop around it. I then was able to use this to retract slightly to bring anteriorly the internal carotid artery more so. However I still had to
carefully chisel through this scarred/inflamed tissue. Finally I was able to get down to the surface of the internal carotid artery distally where it was soft. I carefully circumferentially dissected and passed a vessel loop around it. Great care
was taken to avoid any injury to the surrounding nerves. I clearly visualized the hypoglossal nerve and protected from harm's way. The vagus nerve was clearly visualized the entire time as noted above, and care was taken to avoid any injury to
that. I now double up to my Vesseloops on the external carotid artery, but did not tighten it. I did note and confirm the superior thyroid branch it was slightly more distal and therefore I did not need to get control of this. I now give the
patient an appropriate dose of heparin. The patient was given an appropriate dose of heparin 7000 units (but was subsequently given an additional 1000 units). After 3 minutes of heparin circulation time and confirmation of optimization of the
blood pressure with my anesthesiology colleagues, I clamped the distal internal carotid artery where it was soft. There was no immediate EEG or SSEP changes. After 1 minute of test clamp time there was no changes noted. Therefore at this point,
the vessel loop on the external carotid artery was tightened and the common carotid artery was clamped where it was soft proximally. An arteriotomy was made on the common carotid artery with an 11 blade and extended using a Mathews scissor. I
extended the arteriotomy onto the mid to distal internal carotid artery. The plaque was a centrally soft plaque with cheeselike exudate centrally. It was a very friable/concerning appearing plaque. The central component was soft and as noted
cheeselike in consistency. And externally had some gelatinous like portions as well. A [place] was then used to endarterectomized the plaque. An endarterectomy plane was created, and the plaque was then endarterectomized. Distally I feathered the
plaque out to a nice clean endpoint in the distal internal carotid artery. Next I endarterectomized the intima back to normal intima in the common carotid artery, and the intima was cut flush there. I then grasped the plaque and everted plaque out
of the origin of the external carotid artery. The plaque was then sent off for specimen. Of note, due to the chronic inflammation of proximal internal carotid artery, the wall was definitively thickened. And though I had endarterectomized in the
appropriate plane, the remaining tissue was somewhat raw. There was no other deeper plane to endarterectomized and as noted the wall was just thickened in general. I used a peanut device to confirm no other loose debris in the endarterectomy bed.
And even though the surface posteriorly in the inflamed segment was somewhat raw, there was no loose debris or loosened tissue. I vigorously irrigated heparinized saline. The origin of the external carotid artery was carefully visualized and any
fine debris were removed with fine forceps. Proximal and distal endpoints were then carefully inspected. Any fine debris was removed with fine forceps, and the intima was noted to be nicely adherent proximally distally. I was very satisfied.
Then, I used a bovine pericardial patch to sew a patch angioplasty with a running 6-0 Prolene suture. Prior to completing and tying down my suture line, I backbled sequentially each branch and reclamped each branch prior to unclamping the next
branch. I then irrigated with heparinized saline. Then I completed and tied down my suture line. We then restored flow in the common carotid and external carotid arteries. Finally, we released flow in the internal carotid artery. There was
excellent pulsatile flow in all 3 vessels. There was an excellent Doppler signal in the internal carotid artery distal to the patch with a good normal low resistance Doppler signal. There was a good Doppler signal in the external carotid artery as
well. 6-0 Prolene [id number] sutures were placed along any bleeding points along the suture line. Protamine was given to reverse the heparin. Hemostasis was completely achieved. We then irrigated and confirmed full hemostasis. I then closed
in layers with 2-0 Vicryl layer to reapproximate the sternocleidomastoid muscle, followed by 3-0 Vicryl platysma muscle running layer, followed by 4 Monocryl subcuticular stitch. Dermabond was applied. The patient tolerated procedure well. She
awoke moving all extremities to command.
[2023-10-05 10:08] LABS: Glucose - Point of Care 177 mg/dl (70-99)
[2023-10-05] MEDS: DILAUDID 0.5 MG IV ×2 (10:11→10:26)
[2023-10-05 10:28] LABS: Hematocrit 34.9 % (37.0-47.0); Hemoglobin 11.9 g/dL (12.0-16.0); Mean Corp Hgb Conc. 34.1 g/dL (33.0-37.0); Mean Corpuscular Hgb 32.4 pg (27.0-31.0); Mean Corpuscular Volume 95.1 fL (81.0-99.0); Mean Platelet Volume 13.7 fL (7.4-10.4); Platelet Count 136 10^3/uL (130-400); Red Blood Cell Count 3.67 10^6/uL (4.20-5.40); Red Cell Dist. Width 12.8 % (11.5-14.5); White Blood Cell Count 11.7 10^3/uL (4.8-10.8)
[2023-10-05] MEDS: NSS 1000 IV ×2 (10:28→21:44)
[2023-10-05] MEDS: ZOFRAN 4 MG IV (10:36)
[2023-10-05 10:40] LABS: INR 1.12; PT 14.4 Sec (11.4-14.6)
[2023-10-05 10:41] LABS: APTT 26.5 Sec (23.4-35.0); Blood Urea Nitrogen 17 mg/dl (7-17); Calcium 8.2 mg/dl (8.4-10.2); Carbon Dioxide 22 mmol/L (22-30); Chloride 109 mmol/L (98-107); Estimated Creatinine Clearance 80 ml/min; Glucose 166 mg/dl (70-99); Potassium 4.2 mmol/L (3.5-5.1); Sodium 137 mmol/L (135-145); eGFR > 60.00
[2023-10-05] MEDS: PLAVIX 150 MG PO (10:55)
[2023-10-05] MEDS: NITROGLYCERIN PREMIX 250 IV (11:26)
[2023-10-05] MEDS: TYLENOL 650 MG PO (12:28)
[2023-10-05 12:36] LABS: Glucose - Point of Care 218 mg/dl (70-99)
[2023-10-05] MEDS: NOVOLOG FLEXPEN-LOW RESISTANCE 2 UNITS SC (12:54)
--- NOTE | 2023-10-05 13:14 | CON.INTV ---
Consultation
Consultation Request
Date/Time Consultation Requested: 10/05/23
Date/Time Consultation Performed: 10/05/23
Performing Provider: Anyi
Reason for Consultation: Critical Care
Medical History
-
History of Present Illness:
Patient is a 73-year-old female with history of bilateral carotid stenosis status post left CEA June 2023 presenting for elective right CEA. Underwent procedure 10/05/2023 without complications. Postoperatively transferred to ICU for further
management.
Past Medical History
Past Medical History: Other (see below)
Social History
Tobacco: Non-smoker
Alcohol: None
Drug: None
Allergies / Home Medications
Allergies
Allergy/AdvReac Type Severity Reaction Status Date / Time
No Known Allergies Allergy Unverified 10/05/23 06:27
Home Medications
�Medication �Instructions �Recorded �Confirmed �Last Taken �Type
acetaminophen 500 mg tablet 1,000 mg PO DAILYPRN PRN mild pain 07/20/23 10/05/23 Unknown History
(Tylenol Extra Strength)
alprazolam 0.25 mg tablet 0.25 mg PO DAILY PRN ANXIETY 07/25/23 10/05/23 Unknown History
DURING CAR RIDES
aspirin 81 mg tablet,delayed 81 mg PO DAILY #30 tabs 07/25/23 10/05/23 10/05/23 05:00 Rx
release
atorvastatin 20 mg tablet 20 mg PO QPM #90 tabs 07/25/23 10/05/23 10/04/23 20:00 Rx
lisinopril 20 mg tablet 20 mg PO DAILY Blood Pressure 09/25/23 10/05/23 10/05/23 05:00 History
metformin 500 mg tablet 500 mg PO QPM Diabetes 09/25/23 10/05/23 10/04/23 17:00 History
Review of Systems
-
History Source: Patient
All other systems: Negative unless noted
Vitals / Labs / Diagnostic Testing
Vital Signs
Temp Pulse Resp BP Pulse Ox
97.0 F 63 16 129/67 96
10/05/23 11:45 10/05/23 13:00 10/05/23 13:00 10/05/23 13:00 10/05/23 13:12
Lab Data
10/05/23 10:09
10/05/23 10:09
Laboratory Results
10/05/23
10:09
PT 14.4
INR 1.12
APTT 26.5
Microbiology
10/02/23 10:20 Nose MRSA Screen - Final
No Methicillin Resistant Staphylococcus aureus isolated.
Diagnostic Testing:
Physical Exam
-
HEENT: Normocephalic, Anicteric and Moist Mucous Membranes
Cardiovascular: S1/S2 and Regular Rhythm
Respiratory: Clear and Non-Labored Respirations
GI: Soft, Non Distended and Non Tender
Neurology: Awake, Alert, Oriented, AO x 3 and No Motor Deficits
Skin: Warm, Dry and Good Color
General: Comfortable and Other (NAD)
Assessment
-
Patient is a 73-year-old female with history of bilateral carotid stenosis status post left CEA June 2023 presenting for elective right CEA. Underwent procedure 10/05/2023 without complications. Postoperatively transferred to ICU for further
management.
Asymptomatic, critical right carotid artery stenosis s/p R CEA 10/05/23
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
Bilateral carotid artery stenosis s/p Left carotid endarterectomy with bovine pericardial patch angioplasty 07/24/2023
Hypertension
Type 2 diabetes with nephropathy
Hyperlipidemia
Daily alcohol consumption
Covid-19 (01/2023)
Appendectomy(1976)
Plan
Patient is s/p CEA by vascular surgery service, POD #0
Continue observation following procedure
Follow neurovascular checks per protocol
ASA and statin on board
Follow BP monitoring and parameters as set by primary team
Cardiac history noted
Monitor on telemetry
Pain control per protocol
RASS goal 0
No prior history of pulmonary disease
CXR reviewed indicating no acute disease
No prior PFTs for review
Encouraged IS
Diet advancement per protocol
Aspiration precautions
GI prophylaxis if indicated for stress ulcer prevention in the critically ill
Creat at baseline, follow UO
Critical I/Os
Void trials
Replete electrolytes as needed
No signs/symptoms suspicious for infectious etiology at this time
Will observe off antibiotics for now
Follow temperatures/CBC
Hb and platelets postoperatively stable
DVT prophylaxis recommended if not contraindicated based on procedural history -- heparin SQ and mechanical SCDs
Encouraged OOB/PT/OT/ambulation once cleared by surgical team
We will follow
Diagnostic Data
Chest X-Ray: 10/02/23- No acute cardiopulmonary process.
CT Scan: CT angiogram of the head and neck: High-grade stenosis of the bilateral carotid bulbs secondary to severe atherosclerosis. Greater than 90% luminal diameter reduction to near occlusion of the right carotid bulb. Greater than 85% luminal
diameter reduction of the left carotid bulb.
Echo: 07/19/23- Normal biventricular size and systolic function without regional wall motion abnormality. Estimated LVEF 60%. Mild concentric left ventricular hypertrophy. Mild/moderate mitral regurgitation.
PFT's:
Reports and relevant images were personally reviewed.
-----
Critical care time 50 mins -- this includes review of history, physical exam, medications, hemodynamic/ventilator parameters, laboratory data, imaging and discussion with house staff, pharmacy, respiratory therapy, outside barrel lathe operator, and nursing.
--- NOTE | 2023-10-05 15:14 | PTCARENOTE ---
Received pt from [facility] around noon. Maintained on ivf and ntg gtt to keep sbp 100-165 as ordered. Pt drowsy but easilty arousable, neuro intact. Pain controlled. Mildly nauseated shortly after arrival, but improved after belching. R neck intact,
mildly ecchymotic, surgical glue present. Medicated for throat discomfort. Ice packs prn to neck. Otherwise please refer to assessment.
[2023-10-05] MEDS: HEPARIN 5000 UNITS SC (17:17)
[2023-10-05 17:18] LABS: Glucose - Point of Care 176 mg/dl (70-99)
[2023-10-05] MEDS: GLUCOPHAGE 500 MG PO (17:20)
[2023-10-05] MEDS: LIPITOR 20 MG PO (17:20)
[2023-10-05] MEDS: NOVOLOG FLEXPEN-LOW RESISTANCE 1 UNITS SC (17:20)
--- NOTE | 2023-10-05 17:37 | PTCARENOTE ---
Addendum entered by Bernarda Jeffers RN 10/05/23 17:40:
Continue to titrate ntg for htn as charted.
Original Note:
Pt remains intact neurologically. Denies pain at this time. Voided on bedpan, bladder scan post for >896 and pt straight cath without difficulty for 1000ml
--- NOTE | 2023-10-05 21:00 | PTCARENOTE ---
Rec'd pt resting in bed no c/o pain, slightly anxious with history of white coat anxiety (evidenced by art line BP rising with nurse walking into room). PO Valium given. Right sided incision CDI, JAYDEN, ice pack offered. Neurologically intact.
Afebrile, NSR. Lines flushed/patent. Nitro drip to maintain BP at clinical endpoints. Room air, clear. tolerating diet. Bladder scans as needed for retention. SC on previous shift. Will monitor.
[2023-10-05] MEDS: VALIUM 5 MG PO (21:43)
[2023-10-05 21:48] LABS: Glucose - Point of Care 159 mg/dl (70-99)
[2023-10-06] VITALS (23 sets, daily range): BP systolic 108–214; BP diastolic 54–88
[2023-10-06] MEDS: MORPHINE SULFATE 2 MG IV (01:21)
[2023-10-06] MEDS: TYLENOL 650 MG PO (01:21)
[2023-10-06] MEDS: HEPARIN 5000 UNITS SC ×3 (01:22→18:01)
[2023-10-06] MEDS: VALIUM INJECTION 5 MG IV (02:14)
[2023-10-06] MEDS: DILAUDID 0.5 MG IV ×2 (02:59→04:45)
[2023-10-06 03:36] LABS: Hematocrit 31.2 % (37.0-47.0); Hemoglobin 10.8 g/dL (12.0-16.0); Mean Corp Hgb Conc. 34.6 g/dL (33.0-37.0); Mean Corpuscular Volume 92.3 fL (81.0-99.0); Mean Platelet Volume 13.6 fL (7.4-10.4); Platelet Count 165 10^3/uL (130-400); Red Blood Cell Count 3.38 10^6/uL (4.20-5.40); Red Cell Dist. Width 13.1 % (11.5-14.5); White Blood Cell Count 12.2 10^3/uL (4.8-10.8)
[2023-10-06 03:46] LABS: APTT 25.7 Sec (23.4-35.0); INR 1.05; PT 13.7 Sec (11.4-14.6)
[2023-10-06 04:08] LABS: Blood Urea Nitrogen 15 mg/dl (7-17); Calcium 8.8 mg/dl (8.4-10.2); Carbon Dioxide 22 mmol/L (22-30); Chloride 108 mmol/L (98-107); Estimated Creatinine Clearance 80 ml/min; Glucose 124 mg/dl (70-99); Magnesium 1.6 mg/dl (1.6-2.3); Phosphorus 3.4 mg/dl (2.5-4.5); Potassium 4.5 mmol/L (3.5-5.1); Sodium 138 mmol/L (135-145); eGFR > 60.00
[2023-10-06] MEDS: TRANDATE 10 MG IV (06:31)
--- NOTE | 2023-10-06 06:36 | PTCARENOTE ---
BP elevated overnight, pt very anxious at times. PRN pain meds given as ordered. Morphine did not control pain. Dilaudid given with desired effect. PRN order q3h. Nitro gtt titrated up as well, BP remains 200/88. OKSANA Archuleta made aware. Nitro
continuously titrated per order. IV Labetolol given X1.
--- NOTE | 2023-10-06 07:15 | W.PN.INTV ---
Today's Communication / Plan
Recommendations
HTN issues overnight, now on cardene gtt
CT showing stable hematoma, manage conservatively
BP management ongoing per cards
Continue further postop care per [facility] service
Encourage OOB/PT when able
Assessment
-
Patient is a 73-year-old female with history of bilateral carotid stenosis status post left CEA June 2023 presenting for elective right CEA. Underwent procedure 10/05/2023 without complications. Postoperatively transferred to ICU for further
management.
Asymptomatic, critical right carotid artery stenosis s/p R CEA 10/05/23
HTN urgency now on cardene gtt
Labile HTN history
Suspect OSAS
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
Bilateral carotid artery stenosis s/p Left carotid endarterectomy with bovine pericardial patch angioplasty 07/24/2023
Hypertension
Type 2 diabetes with nephropathy
Hyperlipidemia
Daily alcohol consumption
Covid-19 (01/2023)
Appendectomy(1976)
Plan
Patient is s/p CEA by vascular surgery service, POD #1
Continue observation following procedure
Follow neurovascular checks per protocol
ASA and statin on board
Follow BP monitoring and parameters as set by primary team
Cardiac history noted
Cardene gtt
Cards following BP management
Monitor on telemetry
Pain control per protocol
RASS goal 0
No prior history of pulmonary disease
CXR reviewed indicating no acute disease
No prior PFTs for review
Encouraged IS
Outpatient sleep fu recommended given HTN history
Diet advancement per protocol
Aspiration precautions
GI prophylaxis if indicated for stress ulcer prevention in the critically ill
Creat at baseline, follow UO
Critical I/Os
Void trials
Replete electrolytes as needed
No signs/symptoms suspicious for infectious etiology at this time
Will observe off antibiotics for now
Follow temperatures/CBC
Hb and platelets postoperatively stable
DVT prophylaxis recommended if not contraindicated based on procedural history -- heparin SQ and mechanical SCDs
Encouraged OOB/PT/OT/ambulation once cleared by surgical team
Diagnostic Data
Chest X-Ray: 10/02/23- No acute cardiopulmonary process.
CT Scan: CT angiogram of the head and neck: High-grade stenosis of the bilateral carotid bulbs secondary to severe atherosclerosis. Greater than 90% luminal diameter reduction to near occlusion of the right carotid bulb. Greater than 85% luminal
diameter reduction of the left carotid bulb.
Echo: 07/19/23- Normal biventricular size and systolic function without regional wall motion abnormality. Estimated LVEF 60%. Mild concentric left ventricular hypertrophy. Mild/moderate mitral regurgitation.
PFT's:
Reports and relevant images were personally reviewed.
-----
Critical care time 31 mins -- this includes review of history, physical exam, medications, hemodynamic/ventilator parameters, laboratory data, imaging and discussion with house staff, pharmacy, respiratory therapy, chemical operations specialist, and nursing.
Subjective Dataa
Subjective Data
Date of Service:
Date of Service: October 06, 2023
Chief Complaint: Director Follow Up
Subjective:
overnight had HTN episodes >200, tried on labetalol, nitro without success
now on cardene gtt with improvement
repeat CT showing hematoma at incision site
Objective Data
Data Reviewed
Vital Signs / I&O / Oxygen:
Vital Signs
Temp Pulse Resp BP Pulse Ox
97.9 F 92 29 224/85 92
10/06/23 03:02 10/06/23 06:31 10/06/23 06:30 10/06/23 06:31 10/06/23 06:30
Intake and Output
10/05/23 10/06/23 10/07/23
06:59 06:59 06:59
Intake Total 2260.5 / 2260.5
Output Total 1600 / 1600
Balance 660.5 / 660.5
SaO2 92
Nasal Cannula flow liters per 2
minute
Physical Exam
General: Comfortable and Other (NAD)
HEENT: Normocephalic, Anicteric and Moist Mucous Membranes
Cardiovascular: S1-S2 and Regular Rhythm
Respiratory: Clear and Non-Labored Respirations
GI: Soft, Non Distended and Non Tender
Neurology: Awake, Alert, Oriented, AO x 3 and No Motor Deficits
Skin: Warm, Dry and Good Color
Labs/Micro/Reports
Lab Data
10/06/23 02:53
10/06/23 02:53
Laboratory Results
10/05/23 10/06/23
10:09 02:53
PT 14.4 13.7
INR 1.12 1.05
APTT 26.5 25.7
Microbiology
10/02/23 10:20 Nose MRSA Screen - Final
No Methicillin Resistant Staphylococcus aureus isolated.
--- NOTE | 2023-10-06 07:30 | PTCARENOTE ---
Dr. Nielsen informed of elevated SBP's overnight despite interventions and RX. Recent Labatelol administered IVP. Right neck now with hematoma after pt had vomited. She appears ill. Ice pack to right neck. Holding the right side of her face and restless
in the bed. SBP in the low 200's with NTG @ 80mcg/min, 0.9nss @80ml/hr. No neurological deficits. Reports painful swallowing. VAT called for IV line for STAT CTA head/neck. Pt is aware of the plan of care. Discussed the plan further with Dr. Nielsen and
Radha LOPEZ. Cardene drip started for SBP 100mmHg-160mmHg as ordered. Zofran and Hydromorphone administered. Nausea lingering. Right radial arterial line transduced, calibrated and monitored with all ports patent and secured. Safe environment
maintained.
--- NOTE | 2023-10-06 07:47 | W.PN.UPDATE ---
Update Note
Progress Note Update
Seen and examined.
Patient c/o nausea. No headache. She has thrown up couple times.
Her BP is braden high persistently. Recalcitrant to Nitro. I wasn't aware of ongoing persistent hypertensive issues overnight.
SBP now 220s!
Her R neck has swelling/hematoma. It is full, but not tense. This is new. I had seen her last night (about 9 hours post op) and the neck was completely soft with no hematoma. No pulsatile mass. Neurologically no focal deficits. Moves all
extremities well, tongue midline.
Plan/ s/p R CEA
-severe hypertension - add cardene. Need to get BP down noe.
-stat head and neck CTA to r/o intracranial bleed and to eval carotid endart site for any PSA given significant increase in neck swelling (new since last night).
-continue close ICU monitoring.
[2023-10-06] MEDS: CARDENE 200 IV ×2 (07:53→12:16)
[2023-10-06 07:59] LABS: Glucose - Point of Care 197 mg/dl (70-99)
--- NOTE | 2023-10-06 08:47 | PTCARENOTE ---
Head/neck CTA completed. Clarified with Dr. Nielsen and Radha LOPEZ Heparin, ASA, and Plavix administration. Will continue to administer the ordered doses of these three medications as instructed. Pt's at the bedside and filled in on the
events of the morning regarding her BP and now her incision with what appears to be a hematoma. He is very nervous, anxious, forgetful, repeating questions. He is aware that once we know the results of the CTA we will inform him. Ice pack to her
right neck, Cardene as documented.
--- NOTE | 2023-10-06 08:50 | CON.CAR ---
Addendum entered and electronically signed by Enrico Mariscal MD 10/06/23 12:51:
Patient seen and examined in collaboration with GASOLINE SERVICE ATTENDANT; agree with below.
-73-year-old female with hypertension, hyperlipidemia, and diabetes admitted for a right CEA (previously underwent left CEA 07/24/2023); cardiology was consulted for blood pressure management as patient was very hypertensive postoperatively.
-The patient is currently on a Cardene drip.
-The patient takes lisinopril 20 mg daily at home; will place on 40 mg twice daily.
-Will start Procardia XL 30 mg daily.
-Wean off of Cardene drip.
-No need to repeat echocardiogram (Echo 04/19/2023: EF 60%, mild to moderate mitral regurgitation).
-environmental monitoring specialist; will follow.
Original Note:
Consultation
Consultation Request
Date/Time Consultation Requested: 10/06/2023 08:40
Date/Time Consultation Performed: 10/06/2023 08:50
Requesting Provider: JESSICA Dee
Performing Provider: JESSICA Figueroa for Dr. Mariscal
Reason for Consultation: Hypertensive urgency
Medical History
-
Chief Complaint: right face/hand parathesias, carotid artery stenosis
History of Present Illness:
Mrs. Jasso is a 73-year-old female (seen by Dr. Reid during prior admission) with hypertension, dyslipidemia, NIDDM, former smoker, and bilateral carotid stenosis with left CEA 07/24/2023 and right CEA 10/05/2023 who is being managed by
vascular surgery. Cardiology was consulted for hypertension management. Overnight she developed severe hypertension. Currently on Cardene. She has a stat CTA to rule out intracranial bleeding and to eval her endarterectomy site due to swelling,
nausea, and vomiting. She denies dizziness, headache, and numbness and tingling. She feels like her speech is at its baseline.
Past Medical History
Past Medical History: HTN, Hypercholesterolemia, NIDDM and Other (Prediabetes, carotid stenosis)
Past Surgical History: Appendectomy and Other (Left CEA [07/24/2023], right CEA [10/05/2023])
Social History
Tobacco: Former Smoker
Alcohol: Daily (2 glasses of white wine every evening, last consumed 10/02/2023)
Drug: None
Personal:
Living: With Family
Employment: Retired
Family History
Family History: Reviewed & Not Pertinent
Allergies / Home Medications
Allergy/AdvReac Type Severity Reaction Status Date / Time
No Known Allergies Allergy Unverified 10/05/23 06:27
�Medication �Instructions �Recorded �Confirmed �Type
acetaminophen 500 mg tablet 1,000 mg PO DAILYPRN PRN mild pain 07/20/23 10/05/23 History
(Tylenol Extra Strength)
alprazolam 0.25 mg tablet 0.25 mg PO DAILY PRN ANXIETY 07/25/23 10/05/23 History
DURING CAR RIDES
aspirin 81 mg tablet,delayed 81 mg PO DAILY #30 tabs 07/25/23 10/05/23 Rx
release
atorvastatin 20 mg tablet 20 mg PO QPM #90 tabs 07/25/23 10/05/23 Rx
lisinopril 20 mg tablet 20 mg PO DAILY Blood Pressure 09/25/23 10/05/23 History
metformin 500 mg tablet 500 mg PO QPM Diabetes 09/25/23 10/05/23 History
Review of Systems
-
History Source: Patient
All other systems: Negative unless noted
Constitutional: Fatigue
EENT: No Symptoms
Respiratory: No Symptoms
Cardiac: No Symptoms
Abdomen/GI: Nausea
: No Symptoms
Musculoskeletal: No Symptoms
Skin: No Symptoms
Neurological: No Symptoms
Endocrine: No Symptoms
Hematologic/Lymphatic: No Symptoms
Physical Exam
Vital Signs
Temp Pulse Resp BP Pulse Ox
97.6 F 72 15 167/84 92
10/06/23 07:25 10/06/23 08:00 10/06/23 08:00 10/06/23 08:00 10/06/23 08:14
Lab Results
10/06/23 02:53
10/06/23 02:53
Physical Exam
General: Well Developed, Well Nourished, No Apparent Distress and Comfortable
HEENT: Normocephalic, Anicteric and Moist Mucous Membranes
Respiratory: Clear and Non Labored Respirations
Cardiac: S1/S2 and Regular Rhythm
Breast: Deferred by me
GI: Soft, Non Tender, Non Distended and Normal Bowel Sounds
Rectal: Deferred by Provider
Genito-urinary: No Costovertebral Tender
Musculoskeletal: No Clubbing, No Cyanosis and No Edema
Skin: Warm, Dry and Other (Right carotid site C/D/I with swelling)
Neuro: AO x 3
Hematologic/Lymphatic: No Lymphadenopathy
Psych: Calm
Impression / Plan
-
Hypertensive urgency
-Currently on Cardene, with nausea and vomiting, CTA is pending
-Increase lisinopril to 40 mg daily, follow, she may need additional agent
-EKG pending
-Mild cLVH on prior echocardiogram
Carotid artery stenosis s/p right CEA on 10/05/[address] Nielsen
-Now with nausea and vomiting as above, stat CTA pending
-Left CEA 07/24/2023
Prediabetes, HbA1c 6.4%, on metformin
Dyslipidemia, LDL 109 04/2023, her atorvastatin was increased from 10 mg to 20 mg daily, fasting the panel in a.m.
Data Reviewed
-
Labs: Labs Reviewed by me
Old Records: Reviewed
[2023-10-06] MEDS: NOVOLOG FLEXPEN-LOW RESISTANCE 1 UNITS SC ×2 (08:53→12:04)
[2023-10-06] MEDS: ZESTRIL 20 MG PO ×2 (08:54→11:08)
[2023-10-06] MEDS: PLAVIX 75 MG PO (08:54)
[2023-10-06] MEDS: ASPIR LOW (ENTERIC COATED) 81 MG PO (08:55)
--- NOTE | 2023-10-06 09:00 | W.PN.VS ---
Today's Communication / Plan
-
Patient seen and evaluated at bedside with Dr. Tomas Nielsen, below plan reviewed with attending
Assessment/Plan
-
Assessment: 73-year-old female POD #1 right carotid endarterectomy
Plan:
Increased blood pressure overnight despite nitro infusion, will add second antihypertensive agent Cardene via infusion
Cardiology consult to aid in hypertensive management
Stat CTA of head and neck given nausea and vomiting with increased swelling at right neck incision
Antiemetic as needed
N.p.o. given nausea/vomiting and concern for swelling at right neck incision
Continue arterial line
Continue IV fluids
Continue ICU monitoring
Subjective Data
-
Date of Service: October 06, 2023
Patient seen and evaluated at bedside, currently vomiting with increased nausea. Denies headache, vision changes, fever, chills, unilateral weakness, and difficulty swallowing. Does endorse feeling of anxiety and increased swelling at her right
neck surgical site.
Objective Data
-
Vital Signs
Temp Pulse Resp BP Pulse Ox
97.6 F 75 15 147/62 92
10/06/23 07:25 10/06/23 08:54 10/06/23 08:00 10/06/23 08:54 10/06/23 08:14
Intake and Output
10/05/23 10/06/23 10/07/23
06:59 06:59 06:59
Intake Total 2260.5 / 2351.0 207.5 / 207.5
Output Total 1600 / 1600
Balance 660.5 / 751.0 207.5 / 207.5
Intake:
Oral fluids 360 / 360
IV fluids (Total) 1900.5 / 1991.0 207.5 / 207.5
Cardene 40mg/200ml 25 / 25
NTG 80.5 / 91.0 22.5 / 22.5
Normosol 300 / 300
Nss 1,000 ml @ 80 mls/hr IV . 1520 / 1600 160 / 160
[id number] [facility] Rx#:[id number]
Output:
Urine, Voided 600 / 600
Straight cath output 1000 / 1000
Other:
Number of approximated LARGE 1
amounts of urine
Lab Results
10/06/23 02:53
10/06/23 02:53
Calcium 8.8 mg/dl (8.4-10.2) 10/06/23 02:53
Phosphorus 3.4 mg/dl (2.5-4.5) 10/06/23 02:53
Magnesium 1.6 mg/dl (1.6-2.3) 10/06/23 02:53
Physical Exam
-
AAOx3, currently with nausea/vomiting
Face symmetrical, tongue midline, right neck surgical site with increased edema however not tense, surgical incision CDI with well-approximated edges and Exofin glue intact, surrounding compartments soft
No tachycardia
No dyspnea
ABD nondistended
Bilateral upper extremities and lower extremities move to command and spontaneously, appropriate strength
--- NOTE | 2023-10-06 09:30 | PTCARENOTE ---
Nausea lingering, Benadryl administered IVP as ordered. Pt informed this may make her drowsy. Ice pack to right neck. Hematoma unchanged. C/O pain with swallowing.
[2023-10-06] MEDS: BENADRYL 25 MG IV (09:57)
[2023-10-06] MEDS: MAGNESIUM SULFATE 100 IV (09:58)
--- NOTE | 2023-10-06 10:55 | CM ---
CM following re: discharge planning.
Reviewed pt's chart, met with pt. Pt's at bedside.
Pt is a 73 year old female, admitted with primary dx of POD #1 right carotid endarterectomy. Per vascular surgery, N.p.o. due to nausea/vomiting and concern for swelling at right neck incision, continue supportive care.
Pt reports she lives with in [facility], 2 steps to enter, has 2 supportive stepchildren. 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 No DME, VN or SNF history.
Per Vascular surgery, pt most likely will be discharged tomorrow. IMM reviewed, placed on chart, pt has a copy.
PCP: [facility]
Pharmacy: [facility].
D/C plan: home with anticipated no needs. to transport at discharge.
CM will follow with discharge plan updates as hospitalization progresses
--- NOTE | 2023-10-06 11:12 | PTCARENOTE ---
Reviewed the plan of care with Dr. Shah @ the bedside. Lisinopril 20mg given now, will taper the Cardene as ordered. Pt verbalized her understanding.
[2023-10-06 12:02] LABS: Glucose - Point of Care 163 mg/dl (70-99)
[2023-10-06] MEDS: PROCARDIA XL (EXTENDED RELEASE) 30 MG PO (12:11)
[2023-10-06] MEDS: NSS 1000 IV (15:30)
--- NOTE | 2023-10-06 16:57 | W.DS.TRANS ---
DC Summary - [facility]
-
Discharge Instructions:
Discharge Diagnosis/Procedures Right carotid endarterectomy
Diet Diabetic, Carb Controlled,As tolerated
Activity No strenuous activity
Driving Restrictions Not until seen by your Dr
Bathing Restrictions OK to Shower
Instructions: Type 1 diabetes
Diabetic ketoacidosis
Carb counting for adults with diabetes
Low blood sugar in people with diabetes
Stand-Alone Forms: DC Instr - Vascular OR
Changes to Home Medications: Yes
Discharge Medications:
DC Medications w/original date entered in [employer]
acetaminophen 500 mg tablet (Tylenol Extra Strength) 1,000 mg PO DAILYPRN PRN mild pain 07/20/23
alprazolam 0.25 mg tablet 0.25 mg PO DAILY PRN ANXIETY DURING CAR RIDES 07/25/23
aspirin 81 mg tablet,delayed release 81 mg PO DAILY #30 tabs 07/25/23
atorvastatin 20 mg tablet 20 mg PO QPM #90 tabs 07/25/23
metformin 500 mg tablet 500 mg PO QPM Diabetes 09/25/23
clopidogrel 75 mg tablet 75 mg PO DAILY 28 days #28 tabs 10/06/23
lisinopril 20 mg tablet 40 mg (2 x 20 mg) PO DAILY #60 tabs 10/06/23
nifedipine 30 mg tablet,extended release 30 mg PO DAILY #60 tabs 10/06/23
Home Medication Changes
Increased:
lisinopril 20 mg tablet 40 mg (2 x 20 mg) PO DAILY #60 tabs 10/06/23
Added:
clopidogrel 75 mg tablet 75 mg PO DAILY 28 days #28 tabs 10/06/23
lisinopril 20 mg tablet 40 mg (2 x 20 mg) PO DAILY #60 tabs 10/06/23
nifedipine 30 mg tablet,extended release 30 mg PO DAILY #60 tabs 10/06/23
Pending Results: No
[2023-10-06 17:13] LABS: Glucose - Point of Care 129 mg/dl (70-99)
--- NOTE | 2023-10-06 17:15 | PTCARENOTE ---
Right radial arterial line discontinued as ordered. Pressure held on the site until hemostasis obtained. Gauze dressing placed on site secured with silk tape. Pt instructed not to push off her right hand or grab onto the side rail to reposition
herself. She also was informed to call the nurse should she notice bloody drainage or shadowing on the dressing prior to my reassessment. She verbalized her understanding.
[2023-10-06] MEDS: NOVOLOG FLEXPEN-LOW RESISTANCE SC (17:50)
[2023-10-06] MEDS: LIPITOR 20 MG PO (18:00)
--- NOTE | 2023-10-06 18:00 | PTCARENOTE ---
Right radial dressing CDI. Good capillary refill, no numbness or tingling. Right neck hematoma unchanged.
[2023-10-06] MEDS: GLUCOPHAGE 500 MG PO (18:05)
--- NOTE | 2023-10-06 18:13 | PTCARENOTE ---
Pt had difficulty swallowing half a metformin tablet. She had to stand, drank 2 large cups of water. I crushed the rest of her medications and put them in apple sauce that she took with small spoonfuls. I encouraged her to only eat jello and liquids
tonight. Dr. Nielsen and Radha Vuong TT at that time and notified of this. Pt was informed that after midnight we would keep her NPO, the surgeon would evaluate her in the morning. Ice pack maintained to her right neck. Hematoma unchanged.
--- NOTE | 2023-10-06 20:28 | PTCARENOTE ---
Pt resting in bed with minimal pain right neck, ice pack maintained as ordered. PRN pain meds offered, pt declined at this time. Local swelling noted. Pt airway patent, but c/o difficulty swallowing. Previous shift nurse notified Dr Nielsen and order
noted to maintain NPO status after midnight. Neurologically intact. Afebrile, NSR on monitor. BP well controlled with PO meds. Cardene gtt if needed, currently on standby. Pulses palpable, no edema. IV lines flushed/patent. Art line d/c'd on
previous shift. Room air, 93%, decreased at bases. HOB 30 degrees or greater. Currently only taking sips of warm tea, educated on NPO order at NC. Voiding in commode. Will monitor closely.
[2023-10-06 23:04] LABS: Glucose - Point of Care 114 mg/dl (70-99)
[2023-10-07] VITALS (16 sets, daily range): BP systolic 96–169; BP diastolic 54–74
--- NOTE | 2023-10-07 00:22 | PTCARENOTE ---
Pt resting comfortably with minimal pain. Ice applied to neck as ordered. No change in neuro assessment. Will continue to monitor.
[2023-10-07] MEDS: HEPARIN 5000 UNITS SC ×2 (01:00→09:21)
[2023-10-07 04:48] LABS: Blood Urea Nitrogen 10 mg/dl (7-17); Calcium 9.2 mg/dl (8.4-10.2); Carbon Dioxide 27 mmol/L (22-30); Chloride 103 mmol/L (98-107); Estimated Creatinine Clearance 80 ml/min; Glucose 128 mg/dl (70-99); HDL Cholesterol 49 mg/dl; LDL Cholesterol, Calculated 35 mg/dl; Magnesium 2.1 mg/dl (1.6-2.3); Potassium 3.8 mmol/L (3.5-5.1); Sodium 140 mmol/L (135-145); Total Cholesterol 148 mg/dl (50-199); Triglyceride 323 mg/dl (10-149); Very Low Density Lipoprotein 64 mg/dl (0-30); eGFR > 60.00
[2023-10-07 04:49] LABS: Hematocrit 34.6 % (37.0-47.0); Hemoglobin 11.7 g/dL (12.0-16.0); Mean Corp Hgb Conc. 33.8 g/dL (33.0-37.0); Mean Corpuscular Hgb 31.6 pg (27.0-31.0); Mean Corpuscular Volume 93.5 fL (81.0-99.0); Mean Platelet Volume 13.7 fL (7.4-10.4); Platelet Count 164 10^3/uL (130-400); Red Cell Dist. Width 13.4 % (11.5-14.5); White Blood Cell Count 10.6 10^3/uL (4.8-10.8)
--- NOTE | 2023-10-07 06:07 | PTCARENOTE ---
Cardene gtt restarted for SBP >165. Will titrate to clinical endpoints.
--- NOTE | 2023-10-07 07:07 | W.PN.INTV ---
Today's Communication / Plan
Recommendations
Doing well today, no events ON
Off cardene, BP better, cards following for further management
Encouraged PT/OT, OOB
Can transfer to surgical floors if ok with [facility] service, we will sign off upon transfer
Assessment
-
Patient is a 73-year-old female with history of bilateral carotid stenosis status post left CEA June 2023 presenting for elective right CEA. Underwent procedure 10/05/2023 without complications. Postoperatively transferred to ICU for further
management.
Asymptomatic, critical right carotid artery stenosis s/p R CEA 10/05/23
HTN urgency now on cardene gtt
Labile HTN history
Suspect OSAS
Small hematoma at site, resolving
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
Bilateral carotid artery stenosis s/p Left carotid endarterectomy with bovine pericardial patch angioplasty 07/24/2023
Hypertension
Type 2 diabetes with nephropathy
Hyperlipidemia
Daily alcohol consumption
Covid-19 (01/2023)
Appendectomy(1976)
Plan
Patient is s/p CEA by vascular surgery service, POD #2
Continue observation following procedure
Follow neurovascular checks per protocol
ASA and statin on board
Follow BP monitoring and parameters as set by primary team
Cardiac history noted
Cardene gtt--now weaned to off
Cards following BP management, adjustments per team
Monitor on telemetry
Pain control per protocol
RASS goal 0
No prior history of pulmonary disease
CXR reviewed indicating no acute disease
No prior PFTs for review
Encouraged IS
Outpatient sleep fu recommended given HTN history
Diet advancement per protocol
Aspiration precautions
GI prophylaxis if indicated for stress ulcer prevention in the critically ill
Creat at baseline, follow UO
Critical I/Os
Void trials
Replete electrolytes as needed
No signs/symptoms suspicious for infectious etiology at this time
Will observe off antibiotics for now
Follow temperatures/CBC
Hb and platelets postoperatively stable
DVT prophylaxis recommended if not contraindicated based on procedural history -- heparin SQ and mechanical SCDs
Encouraged OOB/PT/OT/ambulation once cleared by surgical team
Diagnostic Data
Chest X-Ray: 10/02/23- No acute cardiopulmonary process.
CT Scan: CT angiogram of the head and neck: High-grade stenosis of the bilateral carotid bulbs secondary to severe atherosclerosis. Greater than 90% luminal diameter reduction to near occlusion of the right carotid bulb. Greater than 85% luminal
diameter reduction of the left carotid bulb.
Echo: 07/19/23- Normal biventricular size and systolic function without regional wall motion abnormality. Estimated LVEF 60%. Mild concentric left ventricular hypertrophy. Mild/moderate mitral regurgitation.
PFT's:
Reports and relevant images were personally reviewed.
-----
Critical care time 31 mins -- this includes review of history, physical exam, medications, hemodynamic/ventilator parameters, laboratory data, imaging and discussion with house staff, pharmacy, respiratory therapy, audio director, and nursing.
Subjective Dataa
Subjective Data
Date of Service:
Date of Service: October 07, 2023
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
Subjective:
Doing well today, no events ON
Wants to go home, stable on RA
Objective Data
Data Reviewed
Vital Signs / I&O / Oxygen:
Vital Signs
Temp Pulse Resp BP Pulse Ox
98.0 F 72 18 155/71 97
10/07/23 03:14 10/07/23 06:45 10/07/23 06:45 10/07/23 06:00 10/07/23 06:45
Intake and Output
10/06/23 10/07/23 10/08/23
06:59 06:59 06:59
Intake Total 2260.5 / 2351.0 2140.0 / 2140.0
Output Total 1600 / 1600 4025 / 4025
Balance 660.5 / 751.0 -1885.0 / -1885.0
SaO2 97
Nasal Cannula flow liters per 2
minute
Physical Exam
General: Comfortable and Other (NAD)
HEENT: Normocephalic, Anicteric and Moist Mucous Membranes
Cardiovascular: S1-S2 and Regular Rhythm
Respiratory: Clear and Non-Labored Respirations
GI: Soft, Non Distended and Non Tender
Neurology: Awake, Alert, Oriented, AO x 3 and No Motor Deficits
Skin: Warm, Dry and Good Color
Labs/Micro/Reports
Lab Data
10/07/23 04:09
10/07/23 04:09
--- NOTE | 2023-10-07 09:16 | W.PN.VS ---
Today's Communication / Plan
-
DC to home
Assessment/Plan
-
Assessment: 73-year-old female POD #2 right carotid endarterectomy
Plan:
DC today
Subjective Data
-
Date of Service: October 07, 2023
Pt seen and examined at bedside. NAEO. R neck swelling improved
Objective Data
-
Vital Signs
Temp Pulse Resp BP Pulse Ox
98.0 F 72 18 155/71 97
10/07/23 03:14 10/07/23 06:45 10/07/23 06:45 10/07/23 06:00 10/07/23 06:45
Intake and Output
10/06/23 10/07/23 10/08/23
06:59 06:59 06:59
Intake Total 2260.5 / 2351.0 2140.0 / 2140.0
Output Total 1600 / 1600 4025 / 4025
Balance 660.5 / 751.0 -1885.0 / -1885.0
Intake:
Oral fluids 360 / 360 800 / 800
IV fluids (Total) 1900.5 / 1991.0 1240.0 / 1240.0
Cardene 40mg/200ml 337.5 / 337.5
NTG 80.5 / 91.0 22.5 / 22.5
Normosol 300 / 300
Nss 1,000 ml @ 80 mls/hr IV . 1520 / 1600 880 / 880
[id number] ROBERTH Rx#:[id number]
IV piggybacks 100 / 100
Output:
Urine, Voided 600 / 600 4025 / 4025
Straight cath output 1000 / 1000
Other:
Number of approximated SMALL 1
amounts of urine
Number of approximated LARGE 1
amounts of urine
Number of immeasurable emeses? 1
Lab Results
07/13/24 04:09
10/07/23 04:09
Calcium 9.2 mg/dl (8.4-10.2) 10/07/23 04:09
Phosphorus 3.4 mg/dl (2.5-4.5) 10/06/23 02:53
Magnesium 2.1 mg/dl (1.6-2.3) 10/07/23 04:09
Physical Exam
-
Gen: NAD Aox3
Neck: incision C/D/I; hematoma is soft
Pulm: non labored breathing without stridor
Neuro: non focal exam
[2023-10-07] MEDS: PROCARDIA XL (EXTENDED RELEASE) 30 MG PO (09:21)
[2023-10-07] MEDS: ASPIR LOW (ENTERIC COATED) 81 MG PO (09:22)
[2023-10-07] MEDS: ZESTRIL 40 MG PO (09:22)
[2023-10-07] MEDS: PLAVIX 75 MG PO (09:22)
[2023-10-07] MEDS: NOVOLOG FLEXPEN-LOW RESISTANCE SC ×2 (09:27→12:11)
--- NOTE | 2023-10-07 09:34 | CM ---
CM reviewed medical records. Patient is medically ready for discharge. No needs noted.
PLAN: home no needs
[2023-10-07 09:37] LABS: Glucose - Point of Care 139 mg/dl (70-99)
--- NOTE | 2023-10-07 10:09 | W.PN.CD ---
Today's Communication / Plan
-
-Patient has a significant degree of white coat hypertension, per patient and .
-Blood pressure improved on Cardene drip; now discontinued.
-Continue lisinopril 40 mg daily and Procardia XL 30 mg daily.
-Patient instructed to monitor her blood pressure closely at home, and she was told to discontinue Procardia XL if her systolic blood pressure is less than 90 mmHg.
-Patient can continue to follow-up with her PCP as an outpatient for management of hypertension.
Impression / Plan
-
Hypertensive urgency
-Patient has a significant degree of white coat hypertension, per patient and .
-Blood pressure improved on Cardene drip; now discontinued.
-Continue lisinopril 40 mg daily and Procardia XL 30 mg daily.
-Patient instructed to monitor her blood pressure closely at home, and she was told to discontinue Procardia XL if her systolic blood pressure is less than 90 mmHg.
-Patient can continue to follow-up with her PCP as an outpatient for management of hypertension.
Carotid artery stenosis s/p right CEA on 10/05/[address] Nielsen
-Stable.
-Left CEA 07/24/2023
Prediabetes, HbA1c 6.4%, on metformin
Dyslipidemia, LDL 109 04/2023, her atorvastatin was increased from 10 mg to 20 mg daily, fasting the panel in a.m.
Physical Exam
Vital Signs/Labs
Vital Signs
Temp Pulse Resp BP Pulse Ox
98.0 F 76 18 137/64 97
10/07/23 03:14 10/07/23 09:22 10/07/23 06:45 10/07/23 09:22 10/07/23 06:45
10/07/23 04:09
10/07/23 04:09
PT 13.7 Sec (11.4-14.6) 10/06/23 02:53
INR 1.05 10/06/23 02:53
APTT 25.7 Sec (23.4-35.0) 10/06/23 02:53
Magnesium 2.1 mg/dl (1.6-2.3) 10/07/23 04:09
Triglycerides 323 mg/dl (10-149) H 10/07/23 04:09
LDL Cholesterol, Calc 35 mg/dl 10/07/23 04:09
VLDL Cholesterol, Calc 64 mg/dl (0-30) H 10/07/23 04:09
HDL Cholesterol 49 mg/dl 10/07/23 04:09
Physical Exam
Constitutional: No acute distress and Comfortable
EENT: Anicteric and Moist mucous membranes
Cardiovascular: Rhythm & rate is regular, Pedal edema is absent, Systolic murmur absent and S1S2 is normal
Respiratory: Respiratory effort normal and Lungs clear to auscul.
GI: Soft
Neuro/Psych: AO x 3
Other: Skin (Warm, dry, intact)
Data Reviewed
-
Date of Service: October 07, 2023
EKG: Tracing Personally Visualized and interpreted (Sinus rhythm)
Medical Tests (PFT, Pathology etc): Discussed with Nurse, Discussed with Patient and Discussed with Family (, Srinivasan, at bedside)
Labs: Labs Reviewed by me
Total Time Spent with Patient (in minutes): 38
--- NOTE | 2023-10-07 10:42 | PTCARENOTE ---
pt awake and alert, pleasant, on Cardene gtt 2.5 mcg , SBP 135 , she was weaned off the Cardene at 0930 and given her oral medications , she was seen by vascular surgery Dr Puckett and is written for DC to home today , she is currently oob in
chair , her R neck is ecchymotic and hematoma has not increased in size , she was also seen by cardiology Dr Mariscal , pt is aware of pts discharge
[2023-10-07 11:55] LABS: Glucose - Point of Care 137 mg/dl (70-99)
--- NOTE | 2023-10-07 13:13 | PTCARENOTE ---
pt DC to home , pt and given DC instructions both verbalized understanding
--- NOTE | 2023-10-10 11:58 | W.DCSUMMARY ---
Discharge Summary
Discharge Data
Date of Admission: 10/05/23
Date of Discharge: 10/07/23
-
Pending Results: No
Hospital Course
Attending: Tomas Nielsen MD
Consultants: Pulmonary medicine, cardiology
Allergies: NKDA
Procedure with date: Right carotid endarterectomy with bovine pericardial patch angioplasty and intraoperative EEG/SSEP monitoring : By Dr. Tomas Nielsen on 10/05/2023
History of present illness: The patient is an 73 -year-old female with multiple medical conditions including: carotid stenosis, hypertension, dyslipidemia, non-insulin diabetes, and former smoker.. Patient presented on 10/05/2023 for scheduled
procedure with Dr. Tomas Nielsen. Patient presented at baseline health with no reports of recent illness or trauma.
Hospital Course: Briefly, the patient underwent scheduled right carotid endarterectomy without complications, and recovered in PACU. Following recovery phase one and two patient was transferred to intensive care unit per protocol for continued
hemodynamic monitoring. Dry Cell Assembly Supervisor consulted to aid in medical management from a critical care perspective. Overnight patient developed hypertension not controlled by current nitroglycerin infusion, requiring administration of IV labetalol. POD #1
(10/06/2023) patient continued to presents with increased blood pressure despite nitroglycerin infusion and administered IV labetalol doses. Second infusion of Cardene initiated, and cardiology consulted. Patient also reporting nausea and vomiting
with increased swelling at right surgical site. Patient neurologically intact and face symmetrical. Surgical right neck incision clean, dry, and intact with suture line well approximated. Area of edema around incision but it remains soft. Stat CT
angio of head and neck obtained which ruled out intracranial bleed or active extravasation from recent right carotid surgical site. With the addition of Cardene infusion nitroglycerin infusion titrated off with adequate control blood pressure.
Application Development Project Manager Dr. Mariscal increased patient's home lisinopril dose and added p.o. nicardipine, these changes to by mouth medications allowed for discontinuation of IV Cardene. Patient reported resolution of nausea and vomiting, diet was advanced to
diabetic. POD#2 (10/07/2023) Blood pressure remains at goal, right neck surgical edema improved. Patient able to ambulate without difficulty or incident. Patient stable for discharge to home.
Prescriptions and follow up appointment are included in the DC summary dental laboratory assistant note. All instructions were given to the patient in both written and verbal form and the patient expressed understanding.
Discharge Plan
-
Patient Disposition: Home (Routine Discharge)
Discharge Diagnosis/Procedures: Right carotid endarterectomy
Condition: Good
Diet: As tolerated and Diabetic, Carb Controlled
Activity: No strenuous activity
Driving Restrictions: Not until seen by your Dr
Bathing Restrictions: OK to Shower
Activity Restrictions/Additional Instructions:
If you experience severe constant headache, weakness to an arm or leg, change in vision, trouble speaking or any stroke-like symptom, call 911 immediately
If you experience swelling, increased bruising, drainage from neck site, or fever, please call the office
Instructions: Type 1 diabetes, Diabetic ketoacidosis, Carb counting for adults with diabetes, Low blood sugar in people with diabetes
Stand Alone Forms: DC Instr - Vascular OR
Referrals:
Genet Merida MD [Family Provider] -
Beto Reid MD [Active] - in two to three weeks
Anabel Bonner CRNP [Specified Professional Personl] - 10/19/23 8:15 am
Additional Discharge Medication Instructions: Please note your lisinopril has been increased to 40 mg p.o. daily. Additionally, you will take Plavix for a total of 4 weeks and then you may stop this medication.
Please obtain a blood pressure cuff. Please take blood pressure once daily after being in the seated position with feet flat on the floor for 5 minutes. Please bring your blood pressure log to your follow-up office visit with cardiology.
Prescriptions:
New
lisinopril 20 mg Tablet
40 mg PO DAILY Qty: 60 0RF
nifedipine 30 mg Tablet Extended Release
30 mg PO DAILY Qty: 60 0RF
clopidogrel 75 mg Tablet
75 mg PO DAILY 28 Days Qty: 28 0RF
Continued
acetaminophen [Tylenol Extra Strength] 500 mg Tablet
1,000 mg PO DAILYPRN PRN (Reason: mild pain)
aspirin 81 mg Tablet,Delayed Release (Dr/Ec)
81 mg PO DAILY Qty: 30 0RF
atorvastatin 20 mg tablet
20 mg PO QPM Qty: 90 0RF
alprazolam 0.25 mg tablet
0.25 mg PO DAILY PRN (Reason: ANXIETY DURING CAR RIDES)
metformin 500 mg Tablet
500 mg PO QPM
Discontinued
lisinopril 20 mg Tablet
20 mg PO DAILY
Discharge Orders:
Discharge Patient (As Directed); Ordered 10/07/23
Ordered By: Giana Puckett
Discharge Date and Time
Discharge Date/Time: 10/07/23 13:08
Print Language: MALTESE
== END 2023-10-07 13:08 | disposition home or self-care (01) | DRG 39 ==
LOC: ICU 06:09
PROVIDERS: Nurse Practitioner; Nurse Practitioner Acute Care; Nurse Practitioner Gerontology; ADMITTING PHYSICIAN Surgery Vascular Surgery; CONSULT PHYSICIAN Internal Medicine; FAMILY PHYSICIAN Internal Medicine
PROC: 03UK0KZ Supplement Right Internal Carotid Artery with Nonautologous Tissue Substitute, Open Approach (ICD-10-PCS; 2023-10-05)
PROC: 03CK0ZZ Extirpation of Matter from Right Internal Carotid Artery, Open Approach (ICD-10-PCS; 2023-10-05)
DX: I65.21 Occlusion and stenosis of right carotid artery (principal); I16.0 Hypertensive urgency; I10 Essential (primary) hypertension; E11.9 Type 2 diabetes mellitus without complications; E78.5 Hyperlipidemia, unspecified; Z87.891 Personal history of nicotine dependence
CPT/HCPCS: 88304; 88311; 35301; 36415; 70496; 70498; 71045; 71046; 80048; 80061; 82962; 83735; 84100; 85025; 85027; 85610; 85730; 86850; 86900; 86901; 87070; 93005; 95938; 95941; 95955; Q9967

== ENCOUNTER → 2023-11-21 09:11 | Outpatient (REF) | payer MEDICARE, OTHER, SELFPAY | LOC: RAD 09:11 | PROVIDERS: ATTENDING PHYSICIAN Registered Nurse; FAMILY PHYSICIAN Internal Medicine | DX: I66.23 Occlusion and stenosis of bilateral posterior cerebral arteries (principal) | CPT/HCPCS: 93880 ==

== ENCOUNTER → 2024-05-07 08:49 | Outpatient (REF) | payer MEDICARE, OTHER, SELFPAY | LOC: RAD 08:49 | PROVIDERS: ATTENDING PHYSICIAN Nurse Practitioner Family | DX: I10 Essential (primary) hypertension (principal) | CPT/HCPCS: 93975 ==

== ENCOUNTER → 2024-06-04 10:12 | Outpatient (REF) | payer MEDICARE, OTHER, SELFPAY | LOC: RAD 10:12 | PROVIDERS: ATTENDING PHYSICIAN Surgery Vascular Surgery; FAMILY PHYSICIAN Internal Medicine | DX: I65.23 Occlusion and stenosis of bilateral carotid arteries (principal) | CPT/HCPCS: 93880 ==

== ENCOUNTER → 2024-08-15 08:25 | Outpatient (REF) | payer MEDICARE, OTHER, SELFPAY | LOC: WDC 08:25 | PROVIDERS: ATTENDING PHYSICIAN Nurse Practitioner Family | DX: Z12.39 Encounter for other screening for malignant neoplasm of breast (principal); Z12.31 Encounter for screening mammogram for malignant neoplasm of breast | CPT/HCPCS: 77063; 77067 ==

== ENCOUNTER → 2024-09-30 08:10 | Outpatient (REF) | payer MEDICARE, OTHER, SELFPAY | LOC: RCS 08:10 | PROVIDERS: ATTENDING PHYSICIAN Nurse Practitioner Family | DX: I10 Essential (primary) hypertension (principal); I65.23 Occlusion and stenosis of bilateral carotid arteries; Z98.890 Other specified postprocedural states; R07.89 Other chest pain | CPT/HCPCS: 93017; 93350 ==

== ENCOUNTER → 2024-12-19 09:18 | Outpatient (REF) | payer MEDICARE, OTHER, SELFPAY | LOC: RAD 09:18 | PROVIDERS: ATTENDING PHYSICIAN Physician Assistant; FAMILY PHYSICIAN Internal Medicine; OTHER PHYSICIAN Surgery Vascular Surgery | DX: I65.23 Occlusion and stenosis of bilateral carotid arteries (principal) | CPT/HCPCS: 93880 ==